=== PATIENT | male | born 2000 | race African-American/Black ===

== ENCOUNTER 2018-02-07 02:11 | Inpatient (IN) ==
[2018-02-07] MEDS ORDERED: Morphine Sulfate Inj 8 MG/ML Vial IV.PUSH ONE (02:38)
--- NOTE | 2018-02-07 02:42 | ED ---
HPI General Chief complaint: Sickle Cell Stated complaint: Poss sickle cell pain Time Seen by Provider: 02/07/18 02:40 Source: patient Mode of arrival: ambulatory Limitations: no limitations History of Present Illness HPI narrative: 17-year-old male patient with history of sickle cell disease presents to the ER today because he is having 2 days history of pains in his back area, trunk, chest, and states that he feels like it is his sickle cell crisis. He denies any vomiting, fevers, diarrhea, or other symptoms. Related Data Home Medications Medication Instructions Recorded Confirmed albuterol sulfate [Ventolin HFA] 2 puff INHALATION Q4-6H PRN 02/07/18 02/07/18 hydroxyurea (sickle cell) 100 mg PO DAILY 02/07/18 02/07/18 Allergies Allergy/AdvReac Type Severity Reaction Status Date / Time No Known Allergies Allergy Verified 02/07/18 02:15 Review of Systems ROS: all other systems reviewed are negative PMFSH History History Provided By: Patient Medical History Medical History Asthma (Acute) Sickle cell anemia with pain (Acute) Surgical History Surgical History History of cholecystectomy (Acute) Hx of appendectomy (Acute) Social History Social History Substance History: No History of Abuse Second Hand Smoke Exposure: No Smoking Status: Never smoker How Often Do You Have a Drink Containing Alcohol: Never Recent Travel in [facility] within the Last 8 Weeks: No Recent Out of Country Travel within the Last 8 Weeks: No Exam Narrative Exam Narrative: GENERAL: Well-developed young -[place]ian male patient currently in mild distress. Awake and oriented x3. SKIN: Focused skin assessment warm/dry. HEAD: Atraumatic. Normocephalic. EYES: Pupils equal and round. No scleral icterus. No injection or drainage. ENT: No nasal bleeding or discharge. Mucous membranes pink and moist. NECK: Trachea midline. No JVD. CARDIOVASCULAR: Regular rate and rhythm. No murmur appreciated. RESPIRATORY: No accessory muscle use. Clear to auscultation. Breath sounds equal bilaterally. GASTROINTESTINAL: Abdomen soft, non-tender, nondistended. Hepatic and splenic margins not palpable. MUSCULOSKELETAL: No obvious deformities. No clubbing. No cyanosis. No edema. NEUROLOGICAL: Awake and alert. No obvious cranial nerve deficits. Motor grossly within normal limits. Normal speech. PSYCHIATRIC: Appropriate mood and affect; insight and judgment normal. Course Initial Documented Vital Signs Temperature 98.7 F 02/07/18 02:15 Pulse Rate 116 H 02/07/18 02:15 Respiratory Rate 18 02/07/18 02:15 Blood Pressure 152/64 H 02/07/18 02:15 Pulse Oximetry 95 02/07/18 02:15 Last Documented Vital Signs Temperature 98.7 F 02/07/18 02:15 Pulse Rate 87 02/07/18 02:18 Respiratory Rate 15 02/07/18 02:18 Blood Pressure 114/56 L 02/07/18 02:18 Pulse Oximetry 92 L 02/07/18 02:18 Medical Decision Making MDM Narrative Medical decision making narrative: Chest x-ray did not show any signs of acute processes. His lab work shows significant anemia. 2 units of PRBCs were ordered for transfusion at this point. My plan would be to admit him for further treatment of sickle cell anemia. Case has been discussed with Dr. West for admission. Medical Screen Exam Complete: Yes Emergency Medical Condition: Yes Differential Diagnosis Differential Diagnosis: Sickle cell crisis versus symptomatic anemia versus viral syndrome versus pneumonia Lab Data Lab results reviewed: Yes I reviewed the patient's lab results. Result diagrams: 02/07/18 03:06 02/07/18 03:06 Lab Results 02/07/18 02/07/18 02/07/18 Range/Units 03:06 03:06 03:06 WBC 10.9 (4.0-11.0) th/mm3 RBC 1.31 L (4.50-5.90) mil/mm3 Hgb 5.2 L* (13.0-17.0) gm/dL Hct 13.7 L* (39.0-51.0) % MCV 104.3 H (80.0-100.0) fL MCH 39.5 H (27.0-34.0) pg MCHC 37.9 H (32.0-36.0) % RDW 27.7 H (11.6-17.2) % Plt Count 151 (150-450) th/mm3 MPV 8.5 (7.0-11.0) fL Prelim Diff (Auto) Slide review pending Neut % (Auto) 23.4 (16.0-70.0) % Lymph % (Auto) 53.3 H (9.0-44.0) % [place] % (Auto) 19.4 H (0.0-8.0) % Eos % (Auto) 3.6 (0.0-4.0) % Baso % (Auto) 0.3 (0.0-2.0) % Neut # (Auto) 2.5 (1.8-7.7) th/mm3 Lymph # (Auto) 5.8 H (1.0-4.8) th/mm3 [place] # (Auto) 2.1 H (0.0-0.9) th/mm3 Eos # (Auto) 0.4 (0.0-0.4) th/mm3 Baso # (Auto) 0.0 (0.0-0.2) th/mm3 WBC Differential Manual diff final Seg Neuts % (Manual) 18 (16-70) % Lymphocytes % (Manual) 65 H (9-44) % Monocytes % (Manual) 16 H (0-8) % Eosinophils % (Manual) 1 (0-4) % Abs Neuts (Manual) 2.0 (1.8-7.7) th/mm3 Nucleated RBCs/100 WBC 7 H (0-0) /100 WBC Differential Comment . Platelet Estimate Normal (Normal) Platelet Morphology Normal (Normal) Polychromasia 4.2 H (0.0-1.9) % Sickle Cells 1+ H (None) Target Cells 1+ H (None) Monique-Baylis Bodies Present H (None) Retic Count 8.2 H (0.4-3.0) % Absolute Retic 107.9 (20.0-150.0) mil/L Sodium 142 (136-145) meq/L Potassium 4.4 (3.5-5.1) meq/L Chloride 110 H (98-107) meq/L Carbon Dioxide 25.5 (21.0-32.0) meq/L Anion Gap 7 (5-15) meq/L BUN 10 (7-18) mg/dL Creatinine 0.72 (0.60-1.30) mg/dL Estimated GFR Greater than 89 (>89) mL/min Random Glucose 108 H (74-106) mg/dL Calcium 8.4 L (8.5-10.1) mg/dL Total Bilirubin 3.5 H (0.2-1.0) mg/dL AST 81 H (15-39) U/L ALT 20 (9-52) U/L Alkaline Phosphatase 116 (45-117) U/L C-Reactive Protein 0.64 H (0.00-0.30) mg/dL Total Protein 8.1 (6.4-8.2) g/dL Albumin 3.8 (3.4-5.0) g/dL MTS Gel Crossmatch 02/07/18 Range/Units 03:42 WBC (4.0-11.0) th/mm3 RBC (4.50-5.90) mil/mm3 Hgb (13.0-17.0) gm/dL Hct (39.0-51.0) % MCV (80.0-100.0) fL MCH (27.0-34.0) pg MCHC (32.0-36.0) % RDW (11.6-17.2) % Plt Count (150-450) th/mm3 MPV (7.0-11.0) fL Prelim Diff (Auto) Neut % (Auto) (16.0-70.0) % Lymph % (Auto) (9.0-44.0) % [place] % (Auto) (0.0-8.0) % Eos % (Auto) (0.0-4.0) % Baso % (Auto) (0.0-2.0) % Neut # (Auto) (1.8-7.7) th/mm3 Lymph # (Auto) (1.0-4.8) th/mm3 [place] # (Auto) (0.0-0.9) th/mm3 Eos # (Auto) (0.0-0.4) th/mm3 Baso # (Auto) (0.0-0.2) th/mm3 WBC Differential Seg Neuts % (Manual) (16-70) % Lymphocytes % (Manual) (9-44) % Monocytes % (Manual) (0-8) % Eosinophils % (Manual) (0-4) % Abs Neuts (Manual) (1.8-7.7) th/mm3 Nucleated RBCs/100 WBC (0-0) /100 WBC Differential Comment Platelet Estimate (Normal) Platelet Morphology (Normal) Polychromasia (0.0-1.9) % Sickle Cells (None) Target Cells (None) Monique-Baylis Bodies (None) Retic Count (0.4-3.0) % Absolute Retic (20.0-150.0) mil/L Sodium (136-145) meq/L Potassium (3.5-5.1) meq/L Chloride (98-107) meq/L Carbon Dioxide (21.0-32.0) meq/L Anion Gap (5-15) meq/L BUN (7-18) mg/dL Creatinine (0.60-1.30) mg/dL Estimated GFR (>89) mL/min Random Glucose (74-106) mg/dL Calcium (8.5-10.1) mg/dL Total Bilirubin (0.2-1.0) mg/dL AST (15-39) U/L ALT (9-52) U/L Alkaline Phosphatase (45-117) U/L C-Reactive Protein (0.00-0.30) mg/dL Total Protein (6.4-8.2) g/dL Albumin (3.4-5.0) g/dL MTS Gel Crossmatch See Detail Imaging Data Attestation: I personally reviewed and interpreted this imaging study as follows : Radiologist's impression: Chest X-Ray 02/07/18 02:40 CONCLUSION: No acute cardiopulmonary disease. Discharge Plan Discharge Disposition Patient Disposition: 30 Still Patient Discharge Condition Condition: Stable Discharge Details Anticipated Discharge Date: 02/07/18 Diagnosis: Acute sickle cell crisis, Anemia Physicians Team ED Provider: Florecita Gale Primary Care Provider: Primary Care Mary Daniel Rxs /Orders / Referrals /Forms Prescriptions: No Action albuterol sulfate [Ventolin HFA] 90 mcg/actuation Hfa Aerosol Inhaler 2 puff INHALATION Q4-6H PRN (Reason: Shortness Of Breath) RF: 0 hydroxyurea (sickle cell) 100 mg Tablet 100 mg PO DAILY RF: 0 Discharge Interventions Interventions: Vital Signs Last Done: 02/07/18 02:18 Status ED Status: Admitted Patient
[2018-02-07] MEDS ORDERED: Sod Chloride 0.9% Inj 1,000 ML IV.SIG SCH (02:45)
[2018-02-07 03:18] LABS: Baso % (Auto) 0.3 % (0.0-2.0); Eos # (Auto) 0.4 th/mm3 (0.0-0.4); Eos % (Auto) 3.6 % (0.0-4.0); Lymph # (Auto) 5.8 th/mm3 (1.0-4.8); Lymph % (Auto) 53.3 % (9.0-44.0); Mean Corpuscular Hemoglobin 39.5 pg (27.0-34.0); Mean Corpuscular Volume 104.3 fL (80.0-100.0); Mean Platelet Volume 8.5 fL (7.0-11.0); Mono # (Auto) 2.1 th/mm3 (0.0-0.9); Mono % (Auto) 19.4 % (0.0-8.0); Neut # (Auto) 2.5 th/mm3 (1.8-7.7); Neut % (Auto) 23.4 % (16.0-70.0); Platelet Count 151 th/mm3 (150-450); Red Blood Count 1.31 mil/mm3 (4.50-5.90); Red Cell Distribution Width 27.7 % (11.6-17.2); Reticulocyte Percent 8.2 % (0.4-3.0); White Blood Count 10.9 th/mm3 (4.0-11.0)
[2018-02-07 03:21] LABS: Mean Corpuscular HGB Conc 37.9 % (32.0-36.0)
[2018-02-07 03:26] LABS: Hematocrit 13.7 % (39.0-51.0); Hemoglobin 5.2 gm/dL (13.0-17.0)
--- NOTE | 2018-02-07 03:40 | XR ---
EXAM DATE: 02/07/2018 3:17 AM EST AGE/SEX: 17 years / Male INDICATIONS: Chest pain, sickle cell crisis. CLINICAL DATA: This is the patient's initial encounter. Patient reports that signs and symptoms have been present for 1 day and indicates a pain score of 5/10. MEDICAL/SURGICAL HISTORY: Sickle Cell disease. None. COMPARISON: No prior exams available for comparison. FINDINGS: A single AP view of the chest demonstrates the lungs to be symmetrically aerated without evidence of mass, infiltrate or effusion. The cardiomediastinal contours are unremarkable. Osseous structures a re intact. CONCLUSION: No acute cardiopulmonary disease. Electronically signed by: Aayush Weiner MD 02/07/2018 3:39 AM EST
[2018-02-07 03:43] LABS: Alkaline Phosphatase 116 U/L (45-117); Total Protein 8.1 g/dL (6.4-8.2)
[2018-02-07 03:44] LABS: Alanine Aminotransferase 20 U/L (9-52); Albumin 3.8 g/dL (3.4-5.0); Anion Gap 7 meq/L (5-15); Aspartate Aminotransferase 81 U/L (15-39); Blood Urea Nitrogen 10 mg/dL (7-18); Calcium 8.4 mg/dL (8.5-10.1); Carbon Dioxide 25.5 meq/L (21.0-32.0); Chloride 110 meq/L (98-107); Glomerular Filtration Rate Greater Than 89 mL/min (>89); Glucose,Random 108 mg/dL (74-106); Sodium 142 meq/L (136-145)
[2018-02-07 03:45] LABS: Potassium 4.4 meq/L (3.5-5.1)
[2018-02-07 03:53] LABS: Eosinophils 1 % (0-4); Lymphocytes 65 % (9-44); Monocytes 16 % (0-8); Tallied Nucleated RBC 7 (0-0)
[2018-02-07 03:55] LABS: Platelet Estimate Normal (Normal); Platelet Morphology Normal (Normal); Sickle Cells 1+
[2018-02-07] MEDS ORDERED: Sodium Chlor 0.9% Inj 250 ML IV.SIG SCH (04:00)
[2018-02-07 04:04] LABS: Polychromasia 4.2 % (0.0-1.9)
[2018-02-07 04:05] LABS: Target Cells 1+
[2018-02-07 04:06] LABS: Howell-Jolly Bodies Present
[2018-02-07] MEDS ORDERED: Morphine Inj 4 MG/ML Vial IV.PUSH PRN ×2 (04:10→07:58)
[2018-02-07] MEDS ORDERED: Bisacodyl 10 MG Supp RECTAL PRN (04:11)
[2018-02-07] MEDS ORDERED: Acetaminophen 325 MG Tablet PO PRN (04:11)
[2018-02-07] MEDS ORDERED: HYDROmorphone PF Inj 1 MG/ML Ampul IV.PUSH PRN (07:58)
[2018-02-07] MEDS ORDERED: Naloxone Inj 0.4 MG/ML Vial IV.PUSH PRN (07:58)
[2018-02-07] MEDS ORDERED: HYDROXYUREA 100 MG PO SCH (09:00)
[2018-02-07] MEDS: Morphine Inj 4 MG/ML Vial IV.PUSH PRN ×2 (09:04→20:43)
[2018-02-07] MEDS: Senna/Docusate Sodium 8.6/50 MG Tablet PO SCH ×3 (09:05→20:48)
--- NOTE | 2018-02-07 09:15 | P.HP ---
History of Present Illness Primary Care Physician: No Primary Care Physician Chief Complaint: diffuse pain, sickle cell crisis History of Present Illness: 17-year-old male with history of sickle cell disease and asthma, presents with a 2 day history of diffuse body pains concerned for sickle cell flare. The patient reports he recently visited back home and his mother was sick with a cough. He states he has been having nonproductive cough with chills over the past few days. Denies fevers. He then later developed diffuse constant intractable left sided posterior thorax, left hip, and diffuse low back pain which is consistent with his previous sickle cell flares. Denies any chest pain. Denies any recent fall or injury. He does report some shortness of breath and requesting his albuterol inhaler. The patient is a student at [employer]. He is from [place] and follows with test preparation tutor in [place], denies any local test preparation tutor. He reports compliance with his hydroxyurea. He states he usually has to be hospitalized every few months for his sickle cell crisis. He has no other medical complaints at this time. Inpatient Certification: I certify that the inpatient services were ordered in accordance with Medicare regulations governing the order. This includes certification that hospital inpatient services are reasonable and necessary and in the case of services not specified as inpatient-only under 42 CFR 419.22(n), that they are appropriately provided as inpatient services in accordance to with the 2-midnight benchmark under 43 CFR 412.3(e) Estimated Total Length of Stay (Days): 2 Plans for Post Hospital Care: Not yet determined Review of Systems All other systems reviewed negative except as stated in HPI [facility] - History History Provided By: Patient - Medical History Medical History: Medical History (Last Reviewed 02/07/18 @ 13:47 by Julianna Diaz) Asthma Sickle cell anemia with pain - Surgical History Surgical History: Surgical History (Last Reviewed 02/07/18 @ 13:47 by Julianna Diaz) History of cholecystectomy Hx of appendectomy - Family History Family History: Family History (Last Updated 02/07/18 @ 13:48 by Julianna Diaz) Mother Diabetes Other Sickle cell disease - Tobacco History Second Hand Smoke Exposure: No Tobacco Use In Past 30 Days: No Smoking Status: Never smoker - Alcohol History How Often Do You Have a Drink Containing Alcohol: Never - Substance Use History Substance History: No History of Abuse - Travel History Recent Travel in the [place] Within the Last 8 Weeks: No Recent Travel Out of the Country Within the Last 8 Weeks: No - Immunization History Tetanus Immunization: <5 Years Medications and Allergies Active Medications: Active Medications Al Hydroxide/Mg Hydroxide (Milk Of Magnesia Liq) 30 ml PO Q12H PRN PRN Reason: Mild Constipation Albuterol (Ventolin Hfa Inh) 2 puff INH Q4H PRN PRN Reason: SOB/wheezing Bisacodyl (Dulcolax Supp) 10 mg RECTAL DAILY PRN PRN Reason: SEVERE CONSITIPATION Hydromorphone HCl (Dilaudid Pf Inj) 1 mg IV.PUSH Q3H PRN PRN Reason: BREAKTHROUGH PAIN Sodium Chloride (Ns Inj) 250 mls @ 15 mls/hr IV.SIG ONCE NEREYDA Stop: 02/07/18 20:39 Sodium Chloride (Ns Inj) 1,000 mls @ 150 mls/hr IV.CONT .Q6H40M NEREYDA Lactulose (Lactulose Liq) 30 ml PO DAILY PRN PRN Reason: SEVERE CONSITIPATION Morphine Sulfate (Morphine Inj) 2 mg IV.PUSH Q3H PRN PRN Reason: PAIN 3-5; IF UABLE TO TAKE PO Morphine Sulfate (Morphine Inj) 4 mg IV.PUSH Q3H PRN PRN Reason: PAIN 6-10;IF UNABLE TO TAKE PO Last Admin: 02/07/18 09:04 Dose: 4 mg Morphine Sulfate (Morphine Inj) 4 mg IV.PUSH Q1H PRN PRN Reason: Pain Scale 7-10 (Intractable) Naloxone HCl (Narcan Inj) 0.4 mg IV.PUSH UNSCH PRN PRN Reason: SEE LABEL COMMENTS Ondansetron HCl (Zofran Inj) 4 mg IV.PUSH Q6H PRN PRN Reason: NAUSEA OR VOMITING Oxycodone/Acetaminophen (Percocet 5/325 Mg) 1 tab PO Q6H PRN PRN Reason: PAIN SCALE 3 TO 5 Oxycodone/Acetaminophen (Percocet 10/325 Mg) 1 tab PO Q6H PRN PRN Reason: PAIN SCALE 6 TO 10 Hydroxyurea (Sickle Cell) [Hydroxyurea ( Sickle Cell)] 100 Mg 0 each PO DAILY [facility] Senna/Docusate Sodium (Jessica-Colace) 1 tab PO BID [facility] Last Admin: 02/07/18 09:05 Dose: 1 tab Sennosides (Senokot) 17.2 mg PO Q12H PRN PRN Reason: Moderate Constipation Sodium Chloride (Ns Flush) 2 ml IV.FLUSH PRN PRN PRN Reason: FLUSH AFTER USING IV ACCESS Allergies Allergy/AdvReac Type Severity Reaction Status Date / Time No Known Allergies Allergy Verified 02/07/18 02:15 Home Medications Medication Instructions Recorded Confirmed Type albuterol sulfate [Ventolin HFA] 2 puff INHALATION Q4-6H PRN 02/07/18 02/07/18 History hydroxyurea (sickle cell) 100 mg PO DAILY 02/07/18 02/07/18 History Exam Vital signs: Vital Signs 02/07/18 02:15 02/07/18 02:18 02/07/18 04:35 Temperature 98.7 F Pulse Rate 116 H 87 85 Respiratory Rate 18 15 15 Blood Pressure 152/64 H 114/56 L 115/56 L Pulse Oximetry 95 92 L 02/07/18 08:00 Temperature 97.8 F Pulse Rate 73 Respiratory Rate 17 Blood Pressure 106/55 L Pulse Oximetry 93 L Intake & Output 02/06/18 02/07/18 02/07/18 18:59 06:59 18:59 Intake Total 1000 / 1000 Balance 1000 / 1000 Weight 63.503 kg Intake: IV 1000 / 1000 NS Inj 1,000 ML @ 1000 mls/hr 1000 / 1000 IV.SIG .Q1H [facility] Rx#:[id number] Narrative: GENERAL: Well-nourished, well-developed young AA male patient in [facility]. SKIN: Warm and dry. No rash. HEENT: Normocephalic. Atraumatic. Pupils equal and round. Mucous membranes pink and moist. NECK: Supple. Trachea midline. CARDIOVASCULAR: Regular rate and rhythm. No murmur appreciated. RESPIRATORY: No accessory muscle use. Clear to auscultation. Breath sounds equal bilaterally. GASTROINTESTINAL: Abdomen soft, non-tender, nondistended. Normoactive bowel sounds x4. MUSCULOSKELETAL: No obvious deformities. Extremities without clubbing, cyanosis , or edema. Left posterior thorax, hip, low back nontender to palpation. NEUROLOGICAL: Awake and alert. No obvious cranial nerve deficits. Motor grossly within normal limits. Moving all extremities spontaneously. Normal speech. PSYCHIATRIC: Appropriate mood and affect; insight and judgment normal. Results - Labs CBC & Chem 7: 02/07/18 03:06 02/07/18 03:06 Labs: Laboratory Results - last 24 hr 02/07/18 02/07/18 02/07/18 03:06 03:06 03:06 WBC 10.9 RBC 1.31 L Hgb 5.2 L* Hct 13.7 L* MCV 104.3 H MCH 39.5 H MCHC 37.9 H RDW 27.7 H Plt Count 151 MPV 8.5 Prelim Diff (Auto) Slide review pending Neut % (Auto) 23.4 Lymph % (Auto) 53.3 H [place] % (Auto) 19.4 H Eos % (Auto) 3.6 Baso % (Auto) 0.3 Neut # (Auto) 2.5 Lymph # (Auto) 5.8 H [place] # (Auto) 2.1 H Eos # (Auto) 0.4 Baso # (Auto) 0.0 WBC Differential Manual diff final Seg Neuts % (Manual) 18 Lymphocytes % (Manual) 65 H Monocytes % (Manual) 16 H Eosinophils % (Manual) 1 Abs Neuts (Manual) 2.0 Nucleated RBCs/100 WBC 7 H Differential Comment . Platelet Estimate Normal Platelet Morphology Normal Polychromasia 4.2 H Sickle Cells 1+ H Target Cells 1+ H Monique-Calzada Bodies Present H Retic Count 8.2 H Absolute Retic 107.9 Sodium 142 Potassium 4.4 Chloride 110 H Carbon Dioxide 25.5 Anion Gap 7 BUN 10 Creatinine 0.72 Estimated GFR Greater than 89 Random Glucose 108 H Calcium 8.4 L Total Bilirubin 3.5 H AST 81 H ALT 20 Alkaline Phosphatase 116 C-Reactive Protein 0.64 H Total Protein 8.1 Albumin 3.8 Blood Type Antibody Screen Antibody Identification Antigen Identification MTS Gel Crossmatch 02/07/18 02/07/18 03:42 08:45 WBC RBC Hgb Hct MCV MCH MCHC RDW Plt Count MPV Prelim Diff (Auto) Neut % (Auto) Lymph % (Auto) [place] % (Auto) Eos % (Auto) Baso % (Auto) Neut # (Auto) Lymph # (Auto) [place] # (Auto) Eos # (Auto) Baso # (Auto) WBC Differential Seg Neuts % (Manual) Lymphocytes % (Manual) Monocytes % (Manual) Eosinophils % (Manual) Abs Neuts (Manual) Nucleated RBCs/100 WBC Differential Comment Platelet Estimate Platelet Morphology Polychromasia Sickle Cells Target Cells Monique-[place] Bodies Retic Count Absolute Retic Sodium Potassium Chloride Carbon Dioxide Anion Gap BUN Creatinine Estimated GFR Random Glucose Calcium Total Bilirubin AST ALT Alkaline Phosphatase C-Reactive Protein Total Protein Albumin Blood Type O Positive Antibody Screen Positive H Antibody Identification Non-Specific Agglutinin Antigen Identification Fya Antigen - NEGATIVE MTS Gel Crossmatch See Detail - Imaging Impressions Chest X-Ray 02/07/18 02:40 CONCLUSION: No acute cardiopulmonary disease. Caprini VTE Risk Assessment Caprini VTE Risk Assessment: No/Low Risk (score <= 1) Caprini Risk Assessment Model: Point Value = 1 Point Value = 2 Point Value = 3 Point Value = 5 Age 41-60 Minor surgery BMI > 25 kg/m2 Swollen legs Varicose veins or History of unexplained or recurrent spontaneous Oral contraceptives or hormone replacement Sepsis (< 1 month) Serious lung disease, including pneumonia (< 1 month) Abnormal pulmonary function Acute myocardial infarction Congestive heart failure (< 1 month) History of inflammatory bowel disease Medical patient at bed rest Age 61-74 Arthroscopic surgery Major open surgery (> 45 min) Laparoscopic surgery (> 45 min) Malignancy Confined to bed (> 72 hours) Immobilizing plaster cast Central venous access Age >= 75 History of VTE Family history of VTE Factor V Leiden Prothrombin 53002C Lupus anticoagulant Anticardiolipin antibodies Elevated serum homocysteine Heparin-induced thrombocytopenia Other congenital or acquired thrombophilia Stroke (< 1 month) Elective arthroplasty Hip, pelvis, or leg fracture Acute spinal cord injury (< 1 month) Prophylaxis Regimen: Total Risk Factor Score Risk Level Prophylaxis Regimen 0-1 Low Early ambulation 2 Moderate Order ONE of the following: *Sequential Compression Device (SCD) *Heparin 5000 units SQ BID 3-4 Higher Order ONE of the following medications: *Heparin 5000 units SQ TID *Enoxaparin/Lovenox 40 mg SQ daily (WT < 150 kg, CrCl > 30 mL/min) *Enoxaparin/Lovenox 30 mg SQ daily (WT < 150 kg, CrCl > 10-29 mL/min) *Enoxaparin/Lovenox 30 mg SQ BID (WT < 150 kg, CrCl > 30 mL/min) AND/OR *Sequential Compression Device (SCD) 5 or more Highest Order ONE of the following medications: *Heparin 5000 units SQ TID (Preferred with Epidurals) *Enoxaparin/Lovenox 40 mg SQ daily (WT < 150 kg, CrCl > 30 mL/min) *Enoxaparin/Lovenox 30 mg SQ daily (WT < 150 kg, CrCl > 10-29 mL/min) *Enoxaparin/Lovenox 30 mg SQ BID (WT < 150 kg, CrCl > 30 mL/min) AND *Sequential Compression Device (SCD) Assessment and Plan - Plan 17-year-old male with history of sickle cell disease and asthma, presents with a 2 day history of diffuse body pains concerned for sickle cell flare. Sickle Cell Crisis and Anemia: Hgb 5.2 upon arrival -2u pRBC transfusion ordered by ER -s/p IVF boluses in ED, continue IVF hydration with 150cc/hr -continue pain control with percocet prn, IV morphine prn, IV dilaudid prn -O2 prn -consult hematology, appreciate assistance Asthma: chronic, does not appear to be in exacerbation -continue patient's albuterol inhaler prn DVT Prophylaxis: teds/SCDs; avoid chemical prophylaxis with anemia Discharge Planning: Discharge pending further clinical improvement, and hematology consult and clearance.
[2018-02-07] MEDS: Sod Chloride 0.9% Inj 1,000 ML IV.CONT SCH ×2 (11:00→18:32)
[2018-02-07] MEDS: oxyCODONE/Acetaminophen 10/325 Tablet PO PRN (16:19)
[2018-02-07 18:22] VITALS: RESP 18
--- NOTE | 2018-02-07 20:57 | MB ---
cc: Antoine Gardner MD DATE: 02/07/2018 REQUESTING PHYSICIAN: Hospitalist. REASON FOR CONSULTATION: Evaluation and management of sickle cell crisis. HISTORY OF PRESENT ILLNESS: Mr. 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 He is known to have a diagnosis of sickle cell disease with the last episode of sickle cell pain crisis about 4-6 months ago, treated in [place] where he lives. His test desk trouble locator lives in [place] and he follows up with him, and he is on hydroxyurea. He is now admitted with the above problems. He does not have any fevers or chills. He also does not have any shortness of breath, cough or hemoptysis. Does have chronic shortness of breath from asthma on and off, but no recent exacerbation. He did have respiratory symptoms as his mother was also sick at home according to him and he had a sore throat, sniffles, and dry cough with no hemoptysis. No chest pains or palpitations. REVIEW OF SYSTEMS: Negative for headaches, recent symptoms. No neck pain or photophobia. Pulmonary symptoms as mentioned, in no acute shortness of breath or hemoptysis. Abdomen is without pain or distention, nausea, vomiting, blood in the stool or black stools. No frequency, urgency or hematuria. PAST MEDICAL HISTORY: As noted above. MEDICATIONS: He has been on: 1. Hydroxyurea 3 tablets daily according to him. 2. Currently, he is on Oxycodone. 3. Zofran. 4. Narcan. 5. Morphine. 6. As well as Dilaudid as needed. 7. He is on lactulose. 8. Dulcolax. PHYSICAL EXAMINATION: GENERAL: On examination, young male in no apparent distress. Pallor present. No icterus. No palpable adenopathy in the neck or axilla. HEENT: Without oropharyngeal lesions, no gum bleeding or hypertrophy. NEUROLOGIC: Alert and oriented x4. No spinal tenderness. NECK: No JVD. CARDIOVASCULAR: S1, S2. Regular rate and rhythm. No murmurs or gallops. LUNGS: Clear, without crackles or wheeze. ABDOMEN: Soft, without palpable hepatosplenomegaly. EXTREMITIES: No tenderness, or guarding. No edema or evidence of DVTs. LABORATORY DATA: White count 10.9, hemoglobin 5.2, hematocrit 13.7, MCV 104.3, platelets 151 and chemistry significant for total bilirubin 3.5, AST of 81, ALT 20, and creatinine 0.7. C-reactive protein 0.64. IMPRESSION: Sickle cell disease with acute painful crisis. No evidence of hemolytic crisis. No evidence of chest syndrome. PLAN: Agree with current management including hydration and pain medication. In addition, would recommend folic acid supplementation. We will also order haptoglobin levels, and he is status post 2 units of blood transfusion. Would recommend keeping the hemoglobin above 8 grams and will order a STAT repeat CBC and see me in followup with another . If you have any further questions, please do not hesitate to contact me. MD JU Portillo/em , 07:30 PM , 07:39 PM
[2018-02-07] MEDS: Folic Acid 1 MG Tablet PO SCH (21:52)
[2018-02-08] MEDS: Morphine Sulfate Inj 2 MG/ML Vial IV.PUSH PRN ×2 (01:07→08:10)
[2018-02-08] MEDS: Sod Chloride 0.9% Inj 1,000 ML IV.CONT SCH ×3 (01:14→16:53)
[2018-02-08 03:01] LABS: Baso % (Auto) 0.4 % (0.0-2.0); Eos # (Auto) 0.7 th/mm3 (0.0-0.4); Eos % (Auto) 7.1 % (0.0-4.0); Hematocrit 21.9 % (39.0-51.0); Lymph # (Auto) 4.3 th/mm3 (1.0-4.8); Lymph % (Auto) 44.5 % (9.0-44.0); Mean Corpuscular Hemoglobin 36.2 pg (27.0-34.0); Mean Platelet Volume 7.9 fL (7.0-11.0); Mono # (Auto) 1.4 th/mm3 (0.0-0.9); Mono % (Auto) 14.7 % (0.0-8.0); Neut # (Auto) 3.2 th/mm3 (1.8-7.7); Neut % (Auto) 33.3 % (16.0-70.0); Platelet Count 296 th/mm3 (150-450); Red Blood Count 2.21 mil/mm3 (4.50-5.90); Red Cell Distribution Width 25.3 % (11.6-17.2); White Blood Count 9.7 th/mm3 (4.0-11.0)
[2018-02-08 03:05] LABS: Mean Corpuscular HGB Conc 36.5 % (32.0-36.0)
[2018-02-08 05:16] LABS: Platelet Estimate Normal (Normal); Platelet Morphology Normal (Normal)
[2018-02-08 05:17] LABS: Sickle Cells 3+; Target Cells 1+
[2018-02-08] MEDS: Folic Acid 1 MG Tablet PO SCH (08:12)
[2018-02-08] MEDS: Senna/Docusate Sodium 8.6/50 MG Tablet PO SCH (08:15)
--- NOTE | 2018-02-08 09:22 | P.PN ---
Subjective Interval history: Follow-up for sickle cell crisis/anemia. Patient reports feeling much better today. His hemoglobin is 8.0. He states that is actually very good for him as he usually is around 7.0. He states his pain is fairly well controlled. Denies any chest pain or shortness of breath today. He would like to be discharged. He plans to go to class this afternoon. Physical Exam Vital signs: Vital Signs 02/07/18 12:00 02/07/18 14:53 02/07/18 15:21 Temperature 96.5 F L 97.5 F L 98.1 F Pulse Rate 82 72 76 Respiratory Rate 17 17 16 Blood Pressure 103/52 L 115/60 114/54 L Pulse Oximetry 92 L 97 94 L 02/07/18 16:00 02/07/18 18:08 02/07/18 18:15 Temperature 97.5 F L 97.5 F L Pulse Rate 71 60 Respiratory Rate 17 18 Blood Pressure 103/55 L 119/68 Pulse Oximetry 94 L 94 L 94 L 02/07/18 20:42 02/07/18 21:22 02/07/18 21:44 Temperature 97.5 F L 97.5 F L 98.5 F Pulse Rate 68 68 75 Respiratory Rate 18 18 18 Blood Pressure 115/54 L 115/54 L 111/53 L Pulse Oximetry 99 94 L 94 L 02/08/18 05:07 02/08/18 08:00 Temperature 98.1 F 98.6 F Pulse Rate 65 64 Respiratory Rate 18 18 Blood Pressure 109/55 L 114/60 Pulse Oximetry 96 93 L Intake & Output 02/07/18 02/08/18 02/08/18 18:59 06:59 18:59 Intake Total 1300 / 1300 880 / 880 1000 / 1000 Output Total 1250 / 1250 Balance 1300 / 1300 -370 / -370 1000 / 1000 Weight 63.503 kg 63.5 kg Intake: IV 900 / 900 1000 / 1000 NS Inj 1,000 ML @ 150 mls/hr IV 900 / 900 1000 / 1000 .CONT .Q6H40M [facility] Rx#:[id number] Oral 480 / 480 Intake (Blood Product) Amt 400 / 400 400 / 400 Rbc As-3 Leukoreduced Unit 400 / 400 [id number] Rbc As-3 Leukoreduced Unit 400 / 400 [id number] Output: Urine 1250 / 1250 Other: # Voids 3 Date of Last Bowel Movement 02/06/18 02/06/18 # Bowel Movements 0 Weight On Admission 63.503 kg Narrative: GENERAL: Well-nourished, well-developed pleasant young AA male patient in [facility]. SKIN: Warm and dry. No rash. HEENT: Normocephalic. Atraumatic. Pupils equal and round. Mucous membranes pink and moist. CARDIOVASCULAR: Regular rate and rhythm. No murmur appreciated. RESPIRATORY: No accessory muscle use. Clear to auscultation. Breath sounds equal bilaterally. GASTROINTESTINAL: Abdomen soft, non-tender, nondistended. Normoactive bowel sounds x4. MUSCULOSKELETAL: No obvious deformities. Extremities without clubbing, cyanosis , or edema. NEUROLOGICAL: Awake and alert. No obvious cranial nerve deficits. Moving all extremities spontaneously. Normal speech. PSYCHIATRIC: Appropriate mood and affect; insight and judgment normal. Results - Labs CBC & Chem 7: 02/08/18 02:46 02/07/18 03:06 Laboratory Results - last 24 hr 02/07/18 02/07/18 02/08/18 03:06 03:42 02:46 WBC 9.7 RBC 2.21 L Hgb 8.0 L D Hct 21.9 L MCV 99.0 D MCH 36.2 H MCHC 36.5 H RDW 25.3 H Plt Count 296 D MPV 7.9 Prelim Diff (Auto) Slide review pending Neut % (Auto) 33.3 Lymph % (Auto) 44.5 H [place] % (Auto) 14.7 H Eos % (Auto) 7.1 H Baso % (Auto) 0.4 Neut # (Auto) 3.2 Lymph # (Auto) 4.3 [place] # (Auto) 1.4 H Eos # (Auto) 0.7 H Baso # (Auto) 0.0 WBC Differential . Diff Scan Auto diff confirmed Differential Comment . Platelet Estimate Normal Platelet Morphology Normal Basophilic Stippling Faint H Sickle Cells 3+ H Target Cells 1+ H Haptoglobin Iron 143 TIBC 242 L % Saturation 59.0 H Ferritin 281 Blood Type O Positive Antibody Screen Positive H Antigen Identification Fya Antigen - NEGATIVE MTS Gel Crossmatch See Detail Bld Prod Order Comment 02/08/18 02:46 WBC RBC Hgb Hct MCV MCH MCHC RDW Plt Count MPV Prelim Diff (Auto) Neut % (Auto) Lymph % (Auto) [place] % (Auto) Eos % (Auto) Baso % (Auto) Neut # (Auto) Lymph # (Auto) [place] # (Auto) Eos # (Auto) Baso # (Auto) WBC Differential Diff Scan Differential Comment Platelet Estimate Platelet Morphology Basophilic Stippling Sickle Cells Target Cells Haptoglobin Less than 10 L Iron TIBC % Saturation Ferritin Blood Type Antibody Screen Antigen Identification MTS Gel Crossmatch Bld Prod Order Comment - Imaging Chest X-Ray 02/07/18 02:40 CONCLUSION: No acute cardiopulmonary disease. Assessment and Plan - Plan 17-year-old male with history of sickle cell disease and asthma, presents with a 2 day history of diffuse body pains concerned for sickle cell flare. Sickle Cell Crisis and Anemia: Hgb 5.2 upon arrival -s/p 2u pRBC transfusion on 02/07 -s/p IVF boluses in ED, continued IVF hydration with 150cc/hr -continue pain control with percocet prn, IV morphine prn, IV dilaudid prn -O2 prn -consult hematology, appreciate assistance, recommends keeping Hgb above 8 and added folic acid daily -repeat Hgb 8.0 today, patient feels well and wants to go home, discussed with RN, await hematology clearance Asthma: chronic, does not appear to be in exacerbation -continue patient's albuterol inhaler prn -stable DVT Prophylaxis: teds/SCDs; avoid chemical prophylaxis with anemia Discharge Planning: Discharge pending hematology clearance. Discharge patient to home Condition on discharge: Stable Regular Diet as tolerated Ad Samantha activity Rx written: folic acid 1mg daily Follow-up with primary care physician and hematology
[2018-02-08 12:17] VITALS: BP 121/61; PULSE 65; TEMP 98.5; O2SAT 99
[2018-02-08] MEDS: oxyCODONE/Acetaminophen 10/325 Tablet PO PRN (12:54)
--- NOTE | 2018-02-08 20:50 | P.PNONC ---
Subjective Interval history: Late entry: Patient seen earlier this afternoon. Patient sitting at the bedside, dressed and ready to go home. He states he is feeling much better. States his pain is controllable. He denies any shortness of breath or chest pain. Objective Vital Signs/Intake & Output: Vital Signs 02/07/18 21:22 02/07/18 21:44 02/08/18 05:07 Temperature 97.5 F L 98.5 F 98.1 F Pulse Rate 68 75 65 Respiratory Rate 18 18 18 Blood Pressure 115/54 L 111/53 L 109/55 L Pulse Oximetry 94 L 94 L 96 02/08/18 08:00 02/08/18 12:00 Temperature 98.6 F 98.5 F Pulse Rate 64 65 Respiratory Rate 18 18 Blood Pressure 114/60 121/61 Pulse Oximetry 93 L 99 Intake & Output 02/08/18 02/08/18 02/09/18 06:59 18:59 06:59 Intake Total 880 / 880 1999 Output Total 1250 / 1250 Balance -370 / -370 1999 Weight 63.5 kg Intake: IV 1999 NS Inj 1,000 ML @ 150 mls/hr IV 1999 .CONT .Q6H40M [facility] Rx#:[id number] Oral 480 / 480 Intake (Blood Product) Amt 400 / 400 Rbc As-3 Leukoreduced Unit 400 / 400 [id number] Output: Urine 1250 / 1250 Other: Date of Last Bowel Movement 02/06/18 # Bowel Movements 0 Result Diagrams: 02/08/18 02:46 02/07/18 03:06 Laboratory Results: Laboratory Results - last 24 hr 02/07/18 02/08/18 02/08/18 03:42 02:46 02:46 WBC 9.7 RBC 2.21 L Hgb 8.0 L D Hct 21.9 L MCV 99.0 D MCH 36.2 H MCHC 36.5 H RDW 25.3 H Plt Count 296 D MPV 7.9 Prelim Diff (Auto) Slide review pending Neut % (Auto) 33.3 Lymph % (Auto) 44.5 H [place] % (Auto) 14.7 H Eos % (Auto) 7.1 H Baso % (Auto) 0.4 Neut # (Auto) 3.2 Lymph # (Auto) 4.3 [place] # (Auto) 1.4 H Eos # (Auto) 0.7 H Baso # (Auto) 0.0 WBC Differential . Diff Scan Auto diff confirmed Differential Comment . Platelet Estimate Normal Platelet Morphology Normal Basophilic Stippling Faint H Sickle Cells 3+ H Target Cells 1+ H Haptoglobin Less than 10 L Blood Type O Positive Antibody Screen Positive H Antigen Identification Fya Antigen - NEGATIVE MTS Gel Crossmatch See Detail Bld Prod Order Comment Objective Remarks: GENERAL: Well-nourished, well-developed young male patient, in no acute distress SKIN: Warm and dry. HEAD: Normocephalic. EYES: No scleral icterus. No injection or drainage. NECK: Supple, trachea midline. CARDIOVASCULAR: Regular rate and rhythm without murmurs. RESPIRATORY: Breath sounds equal bilaterally. No accessory muscle use. GASTROINTESTINAL: Abdomen soft, non-tender, nondistended. EXTREMITIES: No cyanosis, or edema. MUSCULOSKELETAL: Adequate muscle tone. NEUROLOGICAL: No obvious focal deficit. Awake, alert, and oriented x3. PSYCHIATRIC: Appropriate mood and affect; insight and judgment normal. Assessment/Plan - Plan 17-year-old gentleman admitted for sickle cell pain crisis. Plan: 1. Sickle cell pain crisis, subjectively reports pain is manageable. 2. Sickle cell anemia, hemoglobin 8.0 status post transfusion of 2 units of packed red blood cells. 3. Patient cleared for discharge from a hematology standpoint.
== END 2018-02-08 16:39 | disposition home or self-care (01) ==
LOC: NEPE 02:11 → NEDA 04:11 → N06 06:30
PROVIDERS: ADMIT Internal Medicine; ATTEND Internal Medicine

== ENCOUNTER 2018-05-26 03:45 | Inpatient (IN) ==
[2018-05-26] MEDS ORDERED: Morphine Sulfate Inj 8 MG/ML Vial IV.PUSH ONE (03:58)
[2018-05-26] MEDS ORDERED: Sod Chloride 0.9% Inj 1,000 ML IV.SIG SCH (04:00)
--- NOTE | 2018-05-26 04:27 | XR ---
EXAM DATE: 05/26/2018 4:24 AM EST AGE/SEX: 17 years / Male INDICATIONS: Shortness of breath. CLINICAL DATA: This is the patient's initial encounter. Patient reports that signs and symptoms have been present for 1 day and indicates a pain score of 0/10. MEDICAL/SURGICAL HISTORY: Sickle Cell disease. None. [place] [facility] [place]. . FINDINGS: A single AP view of the chest demonstrates the lungs to be symmetrically aerated without evidence of mass, infiltrate or effusion. The cardiomediastinal contours are unremarkable. Osseous structures a re intact. CONCLUSION: No active disease. Electronically signed by: Juan Manuel Dickinson MD Board Certified Radiologist 05/26/2018 4:26 AM EST
[2018-05-26 05:20] LABS: Alkaline Phosphatase 95 U/L (45-117); Creatine Kinase 179 U/L (39-308); Total Protein 8.4 g/dL (6.4-8.2)
--- NOTE | 2018-05-26 05:20 | ED ---
HPI General Chief complaint: Sickle Cell Stated complaint: Diff breathing Time Seen by Provider: 05/26/18 03:54 Source: patient Mode of arrival: EMS Limitations: no limitations History of Present Illness HPI narrative: 17-year-old male came to the emergency room with history of shortness of breath and lower back pain. Patient has history of asthma as well as sickle cell disease. He says that his lower back pain has been going on for past 24-36 hours. However the shortness of breath started last night. He is taking his inhaler but it did not work. EMS was called. He was given 2 albuterol nebulizers. Upon arrival his room air oxygen saturation was 90%. Patient does have a enzyme chemist from [place]. He says that his last blood transfusion was 3-4 months back. He has been coughing. Related Data Home Medications Medication Instructions Recorded Confirmed albuterol sulfate [Ventolin HFA] 2 puff INHALATION Q4-6H PRN 02/07/18 05/26/18 hydroxyurea (sickle cell) 500 mg PO DAILY 02/07/18 05/26/18 Previous Rx's Medication Instructions Recorded folic acid 1 mg PO DAILY 30 Days #30 tab 02/08/18 Allergies Allergy/AdvReac Type Severity Reaction Status Date / Time No Known Allergies Allergy Verified 05/26/18 04:01 Review of Systems ROS: all other systems reviewed are negative [facility] Medical History Medical History Asthma (Chronic) Sickle cell anemia with pain (Chronic) Surgical History Surgical History History of cholecystectomy (Chronic) Hx of appendectomy (Chronic) Family History Family History Mother Diabetes Other Sickle cell disease Social History Social History Substance History: No History of Abuse Second Hand Smoke Exposure: No Smoking Status: Never smoker How Often Do You Have a Drink Containing Alcohol: Never Recent Travel in [facility] within the Last 8 Weeks: No Recent Out of Country Travel within the Last 8 Weeks: No Immunization History Tetanus Immunization: >5 Years Exam Narrative Exam Narrative: GENERAL: Awake, alert, moderate to SKIN: Focused skin assessment warm/dry. HEAD: Atraumatic. Normocephalic. EYES: Pupils equal and round. No scleral icterus. No injection or drainage. Conjunctiva pallor ENT: No nasal bleeding or discharge. Mucous membranes pink and moist. NECK: Trachea midline. No JVD. CARDIOVASCULAR: Regular rate and rhythm. No murmur appreciated. RESPIRATORY: No accessory muscle use. Decreased air entry bilaterally with end expiratory wheeze GASTROINTESTINAL: Abdomen soft, non-tender, nondistended. Hepatic and splenic margins not palpable. MUSCULOSKELETAL: No obvious deformities. No clubbing. No cyanosis. No edema. NEUROLOGICAL: Awake and alert. No obvious cranial nerve deficits. Motor grossly within normal limits. Normal speech. PSYCHIATRIC: Appropriate mood and affect; insight and judgment normal. Course Initial Documented Vital Signs Pulse Rate 102 H 05/26/18 03:56 Respiratory Rate 20 05/26/18 03:56 Blood Pressure 143/66 H 05/26/18 03:56 Pulse Oximetry 90 L 05/26/18 03:56 Last Documented Vital Signs Temperature 96.9 F L 05/27/18 11:45 Pulse Rate 81 05/27/18 11:45 Respiratory Rate 20 05/27/18 11:45 Blood Pressure 117/68 05/27/18 11:45 Pulse Oximetry 96 05/27/18 11:45 Critical Care Time Critical Care Time: Yes Total Critical Care Time: 2 Attestation: Aggregate critical care time was 30 minutes. Time to perform other separately billable procedures was not included in the critical care time. My time did not include minutes spent treating any other patients simultaneously or on activities that did not directly contribute to the patient's treatment. The services I provided to this patient were to treat and/or prevent clinically significant deterioration that could result in: Symptomatic anemia, blood transfusion I provided critical care services requiring my management, as noted below: Chart data review, documentation time, medication orders and management, vital sign assessments/reviewing monitor data, ordering and reviewing lab tests, ordering and interpreting/reviewing x-rays and diagnostic studies, care of the patient and discussion of the patient with the admitting physicians. Medical Decision Making MDM Narrative Medical decision making narrative: 5:19 AM patient has been given pain medication. 2 doses of DuoNeb has been ordered. Patient had already received IV Solu-Medrol. Awaiting for blood test results. 5:59 AM the CBC shows critical anemia. I have ordered for 2 units of PRBC transfusion. Patient has been admitted to the hospitalist. Medical Screen Exam Complete: Yes Emergency Medical Condition: Yes Lab Data Result diagrams: 05/27/18 07:54 05/27/18 07:54 Lab Results 05/26/18 05/26/18 05/26/18 Range/Units 04:30 04:30 04:30 WBC 16.4 H (4.0-11.0) th/mm3 RBC 1.68 L (4.50-5.90) mil/mm3 Hgb 5.9 L* (13.0-17.0) gm/dL Hct 16.1 L* (39.0-51.0) % MCV 95.6 (80.0-100.0) fL MCH 34.9 H (27.0-34.0) pg MCHC 36.5 H (32.0-36.0) % RDW 26.4 H (11.6-17.2) % Plt Count 321 (150-450) th/mm3 MPV 7.8 (7.0-11.0) fL Prelim Diff (Auto) Slide review pending Neut % (Auto) 42.1 (16.0-70.0) % Lymph % (Auto) 33.6 (9.0-44.0) % [place] % (Auto) 17.2 H (0.0-8.0) % Eos % (Auto) 6.1 H (0.0-4.0) % Baso % (Auto) 1.0 (0.0-2.0) % Neut # (Auto) 6.9 (1.8-7.7) th/mm3 Lymph # (Auto) 5.5 H (1.0-4.8) th/mm3 [place] # (Auto) 2.8 H (0.0-0.9) th/mm3 Eos # (Auto) 1.0 H (0.0-0.4) th/mm3 Baso # (Auto) 0.2 (0.0-0.2) th/mm3 WBC Differential Manual diff final Seg Neuts % (Manual) 34 (16-70) % Band Neuts % (Manual) 3 (0-6) % Lymphocytes % (Manual) 47 H (9-44) % Monocytes % (Manual) 11 H (0-8) % Eosinophils % (Manual) 5 H (0-4) % Abs Neuts (Manual) 6.1 (1.8-7.7) th/mm3 Nucleated RBCs/100 WBC 19 H (0-0) /100 WBC Differential Comment . Platelet Estimate Normal (Normal) Platelet Morphology Enlarged H (Normal) Dimorphic RBCs (None) Polychromasia 6.5 H (0.0-1.9) % Basophilic Stippling (None) Spherocytes (None) Pappenheimer Bodies Present H (None) Sickle Cells 3+ H (None) Target Cells 1+ H (None) Monique-Hartline Bodies Present H (None) Retic Count 14.4 H (0.4-3.0) % Absolute Retic 243.1 H (20.0-150.0) mil/L Hematology Comments Sodium 139 (136-145) meq/L Potassium 3.6 (3.5-5.1) meq/L Chloride 108 H (98-107) meq/L Carbon Dioxide 22.8 (21.0-32.0) meq/L Anion Gap 8 (5-15) meq/L BUN 7 (7-18) mg/dL Creatinine 0.75 (0.60-1.30) mg/dL Estimated GFR Greater than 89 (>89) mL/min Random Glucose 113 H (74-106) mg/dL Lactic Acid 1.3 (0.4-2.0) mmol/L Calcium 8.1 L (8.5-10.1) mg/dL Magnesium 1.8 (1.5-2.5) mg/dL Total Bilirubin 5.5 H (0.2-1.0) mg/dL AST 78 H (15-39) U/L ALT 14 (9-52) U/L Alkaline Phosphatase 95 (45-117) U/L Total Creatine Kinase 179 (39-308) U/L Total Protein 8.4 H (6.4-8.2) g/dL Albumin 3.7 (3.4-5.0) g/dL Urine Color (Yellw/Straw) Urine Clarity (Clear) Urine pH (5.0-8.5) Ur Specific [place] (1.002-1.035) Urine Protein (Neg-Trace) mg/dL Urine Glucose (UA) (Negative) mg/dL Urine Ketones (Negative) mg/dL Urine Occult Blood (Negative) Urine Nitrate (Negative) Urine Bilirubin (Negative) Urine Urobilinogen (Less than 2) mg/dL Ur Leukocyte Esterase (Negative) Urine WBC (0-5) /hpf Urine Mucus (Occasional) /lpf Micro UA Comment Ur Microscopic Review Urine Culture Comments Blood Type Antibody Screen Prewarmed Antibody Srcn Antibody Identification Antigen Identification MTS Gel Crossmatch Crossmatch Prewarmed Bld Prod Order Comment 05/26/18 05/26/18 05/26/18 Range/Units 04:30 04:30 04:30 WBC (4.0-11.0) th/mm3 RBC (4.50-5.90) mil/mm3 Hgb (13.0-17.0) gm/dL Hct (39.0-51.0) % MCV (80.0-100.0) fL MCH (27.0-34.0) pg MCHC (32.0-36.0) % RDW (11.6-17.2) % Plt Count (150-450) th/mm3 MPV (7.0-11.0) fL Prelim Diff (Auto) Neut % (Auto) (16.0-70.0) % Lymph % (Auto) (9.0-44.0) % Raw[place] % (Auto) (0.0-8.0) % Eos % (Auto) (0.0-4.0) % Baso % (Auto) (0.0-2.0) % Neut # (Auto) (1.8-7.7) th/mm3 Lymph # (Auto) (1.0-4.8) th/mm3 [place] # (Auto) (0.0-0.9) th/mm3 Eos # (Auto) (0.0-0.4) th/mm3 Baso # (Auto) (0.0-0.2) th/mm3 WBC Differential Seg Neuts % (Manual) (16-70) % Band Neuts % (Manual) (0-6) % Lymphocytes % (Manual) (9-44) % Monocytes % (Manual) (0-8) % Eosinophils % (Manual) (0-4) % Abs Neuts (Manual) (1.8-7.7) th/mm3 Nucleated RBCs/100 WBC (0-0) /100 WBC Differential Comment Platelet Estimate (Normal) Platelet Morphology (Normal) Dimorphic RBCs (None) Polychromasia (0.0-1.9) % Basophilic Stippling (None) Spherocytes (None) Pappenheimer Bodies (None) Sickle Cells (None) Target Cells (None) Monique-Hartline Bodies (None) Retic Count Cancelled (0.4-3.0) % Absolute Retic Cancelled (20.0-150.0) mil/L Hematology Comments Sodium (136-145) meq/L Potassium (3.5-5.1) meq/L Chloride (98-107) meq/L Carbon Dioxide (21.0-32.0) meq/L Anion Gap (5-15) meq/L BUN (7-18) mg/dL Creatinine (0.60-1.30) mg/dL Estimated GFR (>89) mL/min Random Glucose (74-106) mg/dL Lactic Acid (0.4-2.0) mmol/L Calcium (8.5-10.1) mg/dL Magnesium (1.5-2.5) mg/dL Total Bilirubin (0.2-1.0) mg/dL AST (15-39) U/L ALT (9-52) U/L Alkaline Phosphatase (45-117) U/L Total Creatine Kinase (39-308) U/L Total Protein (6.4-8.2) g/dL Albumin (3.4-5.0) g/dL Urine Color (Yellw/Straw) Urine Clarity (Clear) Urine pH (5.0-8.5) Ur Specific [place] (1.002-1.035) Urine Protein (Neg-Trace) mg/dL Urine Glucose (UA) (Negative) mg/dL Urine Ketones (Negative) mg/dL Urine Occult Blood (Negative) Urine Nitrate (Negative) Urine Bilirubin (Negative) Urine Urobilinogen (Less than 2) mg/dL Ur Leukocyte Esterase (Negative) Urine WBC (0-5) /hpf Urine Mucus (Occasional) /lpf Micro UA Comment Ur Microscopic Review Urine Culture Comments Blood Type O Positive Antibody Screen Positive H Prewarmed Antibody Srcn Positive H Antibody Identification Antigen Identification C Antigen - NEGATIVE MTS Gel Crossmatch See Detail Crossmatch Prewarmed See Detail Bld Prod Order Comment 05/26/18 05/26/18 05/26/18 Range/Units 10:54 12:45 13:04 WBC (4.0-11.0) th/mm3 RBC (4.50-5.90) mil/mm3 Hgb Cancelled (13.0-17.0) gm/dL Hct Cancelled (39.0-51.0) % MCV (80.0-100.0) fL MCH (27.0-34.0) pg MCHC (32.0-36.0) % RDW (11.6-17.2) % Plt Count (150-450) th/mm3 MPV (7.0-11.0) fL Prelim Diff (Auto) Neut % (Auto) (16.0-70.0) % Lymph % (Auto) (9.0-44.0) % [place] % (Auto) (0.0-8.0) % Eos % (Auto) (0.0-4.0) % Baso % (Auto) (0.0-2.0) % Neut # (Auto) (1.8-7.7) th/mm3 Lymph # (Auto) (1.0-4.8) th/mm3 [place] # (Auto) (0.0-0.9) th/mm3 Eos # (Auto) (0.0-0.4) th/mm3 Baso # (Auto) (0.0-0.2) th/mm3 WBC Differential Seg Neuts % (Manual) (16-70) % Band Neuts % (Manual) (0-6) % Lymphocytes % (Manual) (9-44) % Monocytes % (Manual) (0-8) % Eosinophils % (Manual) (0-4) % Abs Neuts (Manual) (1.8-7.7) th/mm3 Nucleated RBCs/100 WBC (0-0) /100 WBC Differential Comment Platelet Estimate (Normal) Platelet Morphology (Normal) Dimorphic RBCs (None) Polychromasia (0.0-1.9) % Basophilic Stippling (None) Spherocytes (None) Pappenheimer Bodies (None) Sickle Cells (None) Target Cells (None) Monique-Hartline Bodies (None) Retic Count (0.4-3.0) % Absolute Retic (20.0-150.0) mil/L Hematology Comments Cancelled Sodium (136-145) meq/L Potassium (3.5-5.1) meq/L Chloride (98-107) meq/L Carbon Dioxide (21.0-32.0) meq/L Anion Gap (5-15) meq/L BUN (7-18) mg/dL Creatinine (0.60-1.30) mg/dL Estimated GFR (>89) mL/min Random Glucose (74-106) mg/dL Lactic Acid (0.4-2.0) mmol/L Calcium (8.5-10.1) mg/dL Magnesium (1.5-2.5) mg/dL Total Bilirubin (0.2-1.0) mg/dL AST (15-39) U/L ALT (9-52) U/L Alkaline Phosphatase (45-117) U/L Total Creatine Kinase (39-308) U/L Total Protein (6.4-8.2) g/dL Albumin (3.4-5.0) g/dL Urine Color Yellow (Yellw/Straw) Urine Clarity Clear (Clear) Urine pH 6.0 (5.0-8.5) Ur Specific [place] 1.008 (1.002-1.035) Urine Protein 30 H (Neg-Trace) mg/dL Urine Glucose (UA) Negative (Negative) mg/dL Urine Ketones Negative (Negative) mg/dL Urine Occult Blood Moderate H (Negative) Urine Nitrate Negative (Negative) Urine Bilirubin Negative (Negative) Urine Urobilinogen 0.2 (Less than 2) mg/dL Ur Leukocyte Esterase Negative (Negative) Urine WBC Less than 1 (0-5) /hpf Urine Mucus Few H (Occasional) /lpf Micro UA Comment Culture not ind Ur Microscopic Review Not Reportable Urine Culture Comments Culture not ind Blood Type Antibody Screen Prewarmed Antibody Srcn Antibody Identification Non-Specific Cold Agglutinin Antigen Identification MTS Gel Crossmatch Crossmatch Prewarmed Bld Prod Order Comment 05/27/18 05/27/18 Range/Units 07:54 07:54 WBC 5.5 (4.0-11.0) th/mm3 RBC 2.32 L (4.50-5.90) mil/mm3 Hgb 8.0 L D (13.0-17.0) gm/dL Hct 21.3 L (39.0-51.0) % MCV 92.1 D (80.0-100.0) fL MCH 34.6 H (27.0-34.0) pg MCHC 37.6 H (32.0-36.0) % RDW 21.5 H D (11.6-17.2) % Plt Count 341 (150-450) th/mm3 MPV 8.1 (7.0-11.0) fL Prelim Diff (Auto) Slide review pending Neut % (Auto) 74.9 H (16.0-70.0) % Lymph % (Auto) 7.7 L (9.0-44.0) % [place] % (Auto) 17.3 H (0.0-8.0) % Eos % (Auto) 0.0 (0.0-4.0) % Baso % (Auto) 0.1 (0.0-2.0) % Neut # (Auto) 4.1 (1.8-7.7) th/mm3 Lymph # (Auto) 0.4 L (1.0-4.8) th/mm3 [place] # (Auto) 0.9 (0.0-0.9) th/mm3 Eos # (Auto) 0.0 (0.0-0.4) th/mm3 Baso # (Auto) 0.0 (0.0-0.2) th/mm3 WBC Differential Manual diff final Seg Neuts % (Manual) 61 (16-70) % Band Neuts % (Manual) 2 (0-6) % Lymphocytes % (Manual) 23 (9-44) % Monocytes % (Manual) 14 H (0-8) % Eosinophils % (Manual) (0-4) % Abs Neuts (Manual) 3.5 (1.8-7.7) th/mm3 Nucleated RBCs/100 WBC 19 H (0-0) /100 WBC Differential Comment . Platelet Estimate Normal (Normal) Platelet Morphology Enlarged H (Normal) Dimorphic RBCs Present H (None) Polychromasia (0.0-1.9) % Basophilic Stippling Faint H (None) Spherocytes Occ H (None) Pappenheimer Bodies Present H (None) Sickle Cells 3+ H (None) Target Cells 1+ H (None) Monique-Hartline Bodies Present H (None) Retic Count (0.4-3.0) % Absolute Retic (20.0-150.0) mil/L Hematology Comments Sodium 138 (136-145) meq/L Potassium 4.6 D (3.5-5.1) meq/L Chloride 108 H (98-107) meq/L Carbon Dioxide 21.5 (21.0-32.0) meq/L Anion Gap 9 (5-15) meq/L BUN 7 (7-18) mg/dL Creatinine 0.51 L (0.60-1.30) mg/dL Estimated GFR Greater than 89 (>89) mL/min Random Glucose 112 H (74-106) mg/dL Lactic Acid (0.4-2.0) mmol/L Calcium 8.9 D (8.5-10.1) mg/dL Magnesium (1.5-2.5) mg/dL Total Bilirubin 4.7 H (0.2-1.0) mg/dL AST 60 H (15-39) U/L ALT 15 (9-52) U/L Alkaline Phosphatase 89 (45-117) U/L Total Creatine Kinase (39-308) U/L Total Protein 8.2 (6.4-8.2) g/dL Albumin 3.5 (3.4-5.0) g/dL Urine Color (Yellw/Straw) Urine Clarity (Clear) Urine pH (5.0-8.5) Ur Specific [place] (1.002-1.035) Urine Protein (Neg-Trace) mg/dL Urine Glucose (UA) (Negative) mg/dL Urine Ketones (Negative) mg/dL Urine Occult Blood (Negative) Urine Nitrate (Negative) Urine Bilirubin (Negative) Urine Urobilinogen (Less than 2) mg/dL Ur Leukocyte Esterase (Negative) Urine WBC (0-5) /hpf Urine Mucus (Occasional) /lpf Micro UA Comment Ur Microscopic Review Urine Culture Comments Blood Type Antibody Screen Prewarmed Antibody Srcn Antibody Identification Antigen Identification MTS Gel Crossmatch Crossmatch Prewarmed Bld Prod Order Comment Imaging Data Radiologist's impression: Chest X-Ray 05/26/18 03:58 CONCLUSION: No active disease. Discharge Plan Discharge Disposition Patient Disposition: ED Admit(ED Internal Use Only) Discharge Order Discharge Orders: AMA Discharge (Routine); Ordered 05/27/18 Ordered By: Candy Cisse ED Use Only Admit Order (Routine); Ordered 05/26/18 Ordered By: Chase Box Physicians Team ED Provider: Chase Box Attending Provider: Candy Cisse Other Providers: Krystal Aceves Status ED Status: Left Department Discharge Information Discharge Date/Time: 05/26/18 08:14
[2018-05-26 05:22] LABS: Baso # (Auto) 0.2 th/mm3 (0.0-0.2); Eos % (Auto) 6.1 % (0.0-4.0); Lymph # (Auto) 5.5 th/mm3 (1.0-4.8); Lymph % (Auto) 33.6 % (9.0-44.0); Mean Corpuscular Hemoglobin 34.9 pg (27.0-34.0); Mean Corpuscular Volume 95.6 fL (80.0-100.0); Mean Platelet Volume 7.8 fL (7.0-11.0); Mono # (Auto) 2.8 th/mm3 (0.0-0.9); Mono % (Auto) 17.2 % (0.0-8.0); Neut # (Auto) 6.9 th/mm3 (1.8-7.7); Neut % (Auto) 42.1 % (16.0-70.0); Platelet Count 321 th/mm3 (150-450); Red Blood Count 1.68 mil/mm3 (4.50-5.90); Red Cell Distribution Width 26.4 % (11.6-17.2); Reticulocyte Percent 14.4 % (0.4-3.0); White Blood Count 16.4 th/mm3 (4.0-11.0)
[2018-05-26 05:23] LABS: Mean Corpuscular HGB Conc 36.5 % (32.0-36.0)
[2018-05-26 05:25] LABS: Alanine Aminotransferase 14 U/L (9-52); Albumin 3.7 g/dL (3.4-5.0); Anion Gap 8 meq/L (5-15); Aspartate Aminotransferase 78 U/L (15-39); Blood Urea Nitrogen 7 mg/dL (7-18); Calcium 8.1 mg/dL (8.5-10.1); Carbon Dioxide 22.8 meq/L (21.0-32.0); Chloride 108 meq/L (98-107); Glomerular Filtration Rate Greater Than 89 mL/min (>89); Glucose,Random 113 mg/dL (74-106); Hematocrit 16.1 % (39.0-51.0); Hemoglobin 5.9 gm/dL (13.0-17.0); Magnesium 1.8 mg/dL (1.5-2.5); Potassium 3.6 meq/L (3.5-5.1); Sodium 139 meq/L (136-145)
[2018-05-26] MEDS ORDERED: Acetaminophen 325 MG Tablet PO PRN (05:42)
[2018-05-26] MEDS ORDERED: Bisacodyl 10 MG Supp RECTAL PRN (05:42)
[2018-05-26] MEDS ORDERED: Sodium Chlor 0.9% Inj 250 ML IV.SIG SCH (06:00)
[2018-05-26 06:05] LABS: Eosinophils 5 % (0-4); Lymphocytes 47 % (9-44); Monocytes 11 % (0-8); Tallied Nucleated RBC 19 (0-0)
[2018-05-26 06:06] LABS: Howell-Jolly Bodies Present; Pappenheimer Bodies Present; Sickle Cells 3+
[2018-05-26 06:07] LABS: Platelet Estimate Normal (Normal); Polychromasia 6.5 % (0.0-1.9); Target Cells 1+
[2018-05-26] MEDS: Sod Chloride 0.9% Inj 1,000 ML IV.CONT SCH ×2 (07:00→11:53)
[2018-05-26] MEDS: Folic Acid 1 MG Tablet PO SCH (08:40)
[2018-05-26] MEDS: HYDROmorphone PF Inj 2 MG/ML Vial IV.PUSH PRN ×2 (08:40→11:41)
[2018-05-26] MEDS: Senna/Docusate Sodium 8.6/50 MG Tablet PO SCH ×2 (08:40→21:35)
[2018-05-26] MEDS ORDERED: Naloxone Inj 0.4 MG/ML Vial IV.PUSH PRN (12:57)
[2018-05-26] MEDS ORDERED: oxyCODONE/Acetaminophen 10/325 Tablet PO PRN (12:57)
[2018-05-26 13:05] LABS: Bilirubin,Urine Negative (Negative); Clarity,Urine Clear (Clear); Color,Urine Yellow (Yellw/Straw); Glucose,Urine (UA) Negative (Negative); Leukocyte Esterase,Urine Negative (Negative); Mucus,Urine Few /lpf (Occasional); Nitrite,Urine Negative (Negative); Specific Gravity,Urine 1.008 (1.002-1.035)
[2018-05-26 13:07] LABS: Urobilinogen,Urine 0.2 mg/dL (Less than 2)
--- NOTE | 2018-05-26 13:11 | P.HPIM ---
History of Present Illness Primary Care Physician: Reji Cosby Chief Complaint: Shortness of breath, cough History of Present Illness: 17-year-old male with a history of sickle cell, asthma presents to the emergency room with a 3-day history of worsening lower back pain along with shortness of breath with intermittent chills of fever. He reports his shortness of breath is worse along with associated wheezing despite using his inhaler last night and therefore came into emergency room for evaluation. He reports he has had a dry cough for the past 7 days along sinus congestion. He reports he usually does not need chronic pain medication when he is well. When he is in sickle cell crisis he reports IV morphine does help with his pain. He reports that shortness of breath is the same at rest and with physical exertion. He reports no associated abdominal pain or any diarrhea. He denies any dysuria urinary frequency or urgency. Inpatient Certification Inpatient Certification: I certify that the inpatient services were ordered in accordance with Medicare regulations governing the order. This includes certification that hospital inpatient services are reasonable and necessary and in the case of services not specified as inpatient-only under 42 CFR 419.22(n), that they are appropriately provided as inpatient services in accordance to with the 2-midnight benchmark under 43 CFR 412.3(e) Estimated Total Length of Stay (Days): 2 Plans for Post Hospital Care: Not yet determined Review of Systems Constitutional: Reports as per HPI, Reports chills, Reports fever(s), Denies headache(s), Reports malaise and Denies night sweats Eyes: Denies blurry vision, Denies change in vision and Denies eye pain Ears, Nose, Mouth, and Throat: Denies abnormal hearing, Denies headache(s), Denies mouth pain, Denies nasal congestion, Denies neck pain and Denies sore throat Cardiovascular: Denies chest pain, Denies pedal edema, Denies palpitations and Denies dyspnea Respiratory: Denies change in phlegm color, Reports cough, Denies excessive phlegm production, Denies dyspnea and Reports wheezing Gastrointestinal: Denies abdominal pain, Denies constipation, Denies loose stools, Denies nausea and Denies vomiting Musculoskeletal: Reports back pain, Denies myalgias, Reports arthralgias, Denies neck pain and Denies numbness Skin/Breast: Denies new lesions and Denies rash Neurologic: Denies abnormal hearing, Denies headache(s), Denies focal weakness, Denies memory loss and Denies numbness Psychiatric: Denies anxiety, Denies depression and Denies memory loss Endocrine: Denies cold intolerance, Denies heat intolerance and Denies palpitations Hematologic/Lymphatic: Denies easy bleeding and Denies easy bruising [facility] Medical History Medical History Asthma (Chronic) Sickle cell anemia with pain (Chronic) Surgical History Surgical History History of cholecystectomy (Chronic) Hx of appendectomy (Chronic) Family History Family History Mother Diabetes Other Sickle cell disease Social History Social History Substance History: No History of Abuse Second Hand Smoke Exposure: No Smoking Status: Never smoker How Often Do You Have a Drink Containing Alcohol: Never Recent Travel in [facility] within the Last 8 Weeks: No Recent Out of Country Travel within the Last 8 Weeks: No Immunization History Tetanus Immunization: >5 Years Medications and Allergies Allergies Allergy/AdvReac Type Severity Reaction Status Date / Time No Known Allergies Allergy Verified 05/26/18 04:01 Home Medications Medication Instructions Recorded Confirmed Type albuterol sulfate [Ventolin HFA] 2 puff INHALATION Q4-6H PRN 02/07/18 05/26/18 History hydroxyurea (sickle cell) 500 mg PO DAILY 02/07/18 05/26/18 History Active Medications: Active Medications Acetaminophen (Tylenol) 650 mg PO Q4H PRN PRN Reason: Temp > 100.4 Al Hydroxide/Mg Hydroxide (Milk Of Magnesia Liq) 30 ml PO Q12H PRN PRN Reason: Mild Constipation Albuterol (Duoneb Neb (Prn)) 1 ampul NEB Q4HR NEB PRN PRN Reason: SOB/WHEEZING Albuterol (Duoneb Neb (Manuel)) 1 ampul NEB Q6HR WHILE AWAKE NEB MANUEL Azithromycin (Zithromax) 500 mg PO DAILY MANUEL Bisacodyl (Dulcolax Supp) 10 mg RECTAL DAILY PRN PRN Reason: SEVERE CONSITIPATION Folic Acid (Folic Acid) 1 mg PO DAILY MANUEL Last Admin: 05/26/18 08:40 Dose: 1 mg Guaifenesin/Dextromethorphan (Robitussin Dm Liq) 10 ml PO Q4H PRN PRN Reason: COUGH Sodium Chloride (Ns Inj) 250 mls @ 15 mls/hr IV.SIG ONCE [facility] Stop: 05/26/18 22:39 Sodium Chloride (Ns Inj) 1,000 mls @ 100 mls/hr IV.CONT .Q10H [facility] Last Admin: 05/26/18 11:53 Dose: 150 mls/hr Lactulose (Lactulose Liq) 30 ml PO DAILY PRN PRN Reason: SEVERE CONSITIPATION Methylprednisolone Sodium Succinate (Solumedrol Inj) 40 mg IV.PUSH Q8HR MANUEL Morphine Sulfate (Morphine Inj) 4 mg IV.PUSH Q3H PRN PRN Reason: BREAKTHROUGH PAIN Naloxone HCl (Narcan Inj) 0.4 mg IV.PUSH UNSCH PRN PRN Reason: SEE LABEL COMMENTS Non-Formulary Medication (Hydroxyurea (Sickle Cell) [Hydroxyurea (Sickle Cell)] ) 500 mg PO DAILY [facility] Ondansetron HCl (Zofran Inj) 4 mg IV.PUSH Q6H PRN PRN Reason: NAUSEA OR VOMITING Oxycodone/Acetaminophen (Percocet 10/325 Mg) 1 tab PO Q6H PRN PRN Reason: PAIN SCALE 6 TO 10 Oxycodone/Acetaminophen (Percocet 5/325 Mg) 1 tab PO Q6H PRN PRN Reason: PAIN SCALE 3 TO 5 Senna/Docusate Sodium (Jessica-Colace) 1 tab PO BID [facility] Last Admin: 05/26/18 08:40 Dose: Not Given Sennosides (Senokot) 17.2 mg PO Q12H PRN PRN Reason: Moderate Constipation Sodium Chloride (Ns Flush) 2 ml IV.FLUSH BID [facility] Last Admin: 05/26/18 08:40 Dose: 2 ml Sodium Chloride (Ns Flush) 2 ml IV.FLUSH PRN PRN PRN Reason: FLUSH AFTER USING IV ACCESS Physical Exam Vital signs: Vital Signs 05/26/18 03:56 05/26/18 04:01 05/26/18 04:04 Temperature 98.8 F Pulse Rate 102 H 100 H Respiratory Rate 20 20 Blood Pressure 143/66 H Pulse Oximetry 90 L 94 L 94 L 05/26/18 06:34 05/26/18 08:08 05/26/18 11:38 Temperature 98.3 F 98.1 F Pulse Rate 58 L 81 90 Respiratory Rate 18 16 18 Blood Pressure 129/58 L 112/58 L 117/56 L Pulse Oximetry 98 96 Intake & Output 05/25/18 05/26/18 05/26/18 18:59 06:59 18:59 Intake Total 1100 / 1100 1000 / 1000 Balance 1100 / 1100 1000 / 1000 Weight 65.771 kg Intake: IV 1100 / 1100 1000 / 1000 NS Inj 1,000 ML @ 150 mls/hr IV 1000 / 1000 .CONT .Q6H40M [facility] Rx#:[id number] NS Inj 1,000 ML @ 1000 mls/hr 1000 / 1000 IV.SIG BOLUS MANU[facility] Rx#:[id number] Rocephin Inj 1,000 MG In NS Inj 100 / 100 100 ML @ 200 mls/hr IV.SIG ONCE ONE Rx#:[id number] Other: # Voids 1 Narrative: GENERAL: Well-nourished well-developed male in no acute distress SKIN: Warm and dry. HEAD: Atraumatic. Normocephalic. EYES: Pupils equal and round. No scleral icterus. No injection or drainage. ENT: No nasal bleeding or discharge. Mucous membranes pink and moist. NECK: Trachea midline. No JVD. CARDIOVASCULAR: Tachycardic rate, regular rhythm RESPIRATORY: Diffuse expiratory wheeze; mild accessory muscle use. GASTROINTESTINAL: Abdomen soft, non-tender, nondistended. Normoactive bowel sounds MUSCULOSKELETAL: Extremities without clubbing, cyanosis, or edema. No obvious deformities. NEUROLOGICAL: Awake and alert to person place time and situation. No obvious cranial nerve deficits. Motor grossly within normal limits. Five out of 5 muscle strength in the arms and legs. Normal speech. PSYCHIATRIC: Appropriate mood and affect; insight and judgment normal. Results Labs CBC & Chem 7: 05/26/18 04:30 05/26/18 04:30 Imaging Impressions Chest X-Ray 05/26/18 03:58 CONCLUSION: No active disease. Caprini VTE Risk Assessment Caprini VTE Risk Assessment: No/Low Risk (score <= 1) Caprini Risk Assessment Model: Point Value = 1 Point Value = 2 Point Value = 3 Point Value = 5 Age 41-60 Minor surgery BMI > 25 kg/m2 Swollen legs Varicose veins or History of unexplained or recurrent spontaneous Oral contraceptives or hormone replacement Sepsis (< 1 month) Serious lung disease, including pneumonia (< 1 month) Abnormal pulmonary function Acute myocardial infarction Congestive heart failure (< 1 month) History of inflammatory bowel disease Medical patient at bed rest Age 61-74 Arthroscopic surgery Major open surgery (> 45 min) Laparoscopic surgery (> 45 min) Malignancy Confined to bed (> 72 hours) Immobilizing plaster cast Central venous access Age >= 75 History of VTE Family history of VTE Factor V Leiden Prothrombin [id number] Lupus anticoagulant Anticardiolipin antibodies Elevated serum homocysteine Heparin-induced thrombocytopenia Other congenital or acquired thrombophilia Stroke (< 1 month) Elective arthroplasty Hip, pelvis, or leg fracture Acute spinal cord injury (< 1 month) Prophylaxis Regimen: Total Risk Factor Score Risk Level Prophylaxis Regimen 0-1 Low Early ambulation 2 Moderate Order ONE of the following: *Sequential Compression Device (SCD) *Heparin 5000 units SQ BID 3-4 Higher Order ONE of the following medications: *Heparin 5000 units SQ TID *Enoxaparin/Lovenox 40 mg SQ daily (WT < 150 kg, CrCl > 30 mL/min) *Enoxaparin/Lovenox 30 mg SQ daily (WT < 150 kg, CrCl > 10-29 mL/min) *Enoxaparin/Lovenox 30 mg SQ BID (WT < 150 kg, CrCl > 30 mL/min) AND/OR *Sequential Compression Device (SCD) 5 or more Highest Order ONE of the following medications: *Heparin 5000 units SQ TID (Preferred with Epidurals) *Enoxaparin/Lovenox 40 mg SQ daily (WT < 150 kg, CrCl > 30 mL/min) *Enoxaparin/Lovenox 30 mg SQ daily (WT < 150 kg, CrCl > 10-29 mL/min) *Enoxaparin/Lovenox 30 mg SQ BID (WT < 150 kg, CrCl > 30 mL/min) AND *Sequential Compression Device (SCD) Assessment and Plan Plan 17-year-old male with history of sickle cell anemia presented with shortness of breath ,cough, and low back pain Sickle cell pain crisis-start p.o. Percocet with morphine as needed for pain, IV fluid hydration supportive care Acute on chronic anemia, history of sickle cell anemia-patient presented with hemoglobin 5.9, will transfuse 2 units of packed red blood cells, repeat level in the morning. Acute asthma exacerbation with underlying upper respiratory infectionstart steroids, DuoNeb treatment, add Zithromax, dose of IV ceftriaxone given the emergency room.
[2018-05-26] MEDS: MethylPREDNISolone Sod Succinate Inj 40 MG/ML Vial IV.PUSH SCH ×2 (13:50→22:52)
[2018-05-26] MEDS ORDERED: Azithromycin 250 MG Tablet PO SCH (14:00)
--- NOTE | 2018-05-26 14:58 | MB ---
cc: Krystal Aceves MD DATE: 05/26/2018 CHIEF COMPLAINT: 1. Hemoglobin SS disease. 2. Sickle cell pain crisis. HISTORY OF PRESENT ILLNESS: The patient is a 17-year-old gentleman who is admitted to the hospital with lower back pain and rib pain that is consistent with sickle cell pain crisis. He has a known diagnosis of sickle cell disease, and he follows closely with his processing spec in the [facility]. He is on hydroxyurea. He denies any fever or chills. He denies any signs or symptoms of infection. He reports that he is having some mild wheezing. However, this is normal for him as he also has asthma. PAST MEDICAL HISTORY: Sickle cell disease, asthma. PAST SURGICAL HISTORY: Gallbladder. REVIEW OF SYSTEMS: As per HPI. All others negative. FAMILY HISTORY: Other family members with sickle cell disease. SOCIAL HISTORY: Denies tobacco, alcohol, or illegal drug use. 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 HOSPITAL MEDICATIONS: 1. Azithromycin. 2. Rocephin. 3. Folic acid. 4. Hydromorphone 5. Hydroxyurea. 6. Solu-Medrol. 7. Morphine. 8. Oxycodone. 9. Senna. PHYSICAL EXAMINATION: VITAL SIGNS: Temperature 98.1, pulse 82, respiratory rate 18, blood pressure 117/56, pulse oximetry 96% on 2 L via nasal cannula. GENERAL: Thin man, in no distress. HEENT: Head is normocephalic, atraumatic. Eyes with scleral icterus. NECK: Supple. CARDIOVASCULAR: Regular rate and rhythm. No murmurs. RESPIRATORY: Wheezing. EXTREMITIES: No edema. NEUROLOGIC: Grossly nonfocal. PSYCHIATRIC: Appropriate mood and affect. ABDOMEN: Soft, nontender. DIAGNOSTIC DATA: Chest x-ray with no active disease. ASSESSMENT AND PLAN: Sickle cell pain crisis. Continue with current pain medication regimen. The patient reports that his pain is currently well controlled. This pain is consistent with his past history of sickle cell disease. Continue with hydration and venous thromboembolism prophylaxis. He is currently on antibiotics. Inpatient hematology service will continue to follow. Krystal Aceves MD GUANAKO/evan , 02:35 PM , 02:41 PM
[2018-05-26] MEDS: guaiFENesin/Dextromethorphan 200 MG/20 MG 10 ML UDC PO PRN (19:09)
[2018-05-26] MEDS: Morphine Inj 4 MG/ML Vial IV.PUSH PRN ×2 (19:09→22:52)
[2018-05-27] MEDS: Sod Chloride 0.9% Inj 1,000 ML IV.CONT SCH ×2 (00:36→05:05)
[2018-05-27] MEDS: Morphine Inj 4 MG/ML Vial IV.PUSH PRN ×4 (01:45→12:08)
[2018-05-27] MEDS: MethylPREDNISolone Sod Succinate Inj 40 MG/ML Vial IV.PUSH SCH (05:04)
[2018-05-27] MEDS: Folic Acid 1 MG Tablet PO SCH (08:42)
[2018-05-27] MEDS: Senna/Docusate Sodium 8.6/50 MG Tablet PO SCH (08:44)
[2018-05-27] MEDS ORDERED: Hydroxyurea 500 MG Capsule PO SCH (09:00)
[2018-05-27 09:16] VITALS: RESP 20
[2018-05-27 09:45] LABS: Baso % (Auto) 0.1 % (0.0-2.0); Hematocrit 21.3 % (39.0-51.0); Lymph # (Auto) 0.4 th/mm3 (1.0-4.8); Lymph % (Auto) 7.7 % (9.0-44.0); Mean Corpuscular Hemoglobin 34.6 pg (27.0-34.0); Mean Corpuscular Volume 92.1 fL (80.0-100.0); Mono # (Auto) 0.9 th/mm3 (0.0-0.9); Mono % (Auto) 17.3 % (0.0-8.0); Neut # (Auto) 4.1 th/mm3 (1.8-7.7); Neut % (Auto) 74.9 % (16.0-70.0); Red Blood Count 2.32 mil/mm3 (4.50-5.90); Red Cell Distribution Width 21.5 % (11.6-17.2); White Blood Count 5.5 th/mm3 (4.0-11.0)
[2018-05-27 09:46] LABS: Mean Corpuscular HGB Conc 37.6 % (32.0-36.0)
[2018-05-27 09:47] LABS: Mean Platelet Volume 8.1 fL (7.0-11.0); Platelet Count 341 th/mm3 (150-450)
[2018-05-27 09:58] LABS: Alanine Aminotransferase 15 U/L (9-52); Albumin 3.5 g/dL (3.4-5.0); Alkaline Phosphatase 89 U/L (45-117); Anion Gap 9 meq/L (5-15); Aspartate Aminotransferase 60 U/L (15-39); Blood Urea Nitrogen 7 mg/dL (7-18); Calcium 8.9 mg/dL (8.5-10.1); Carbon Dioxide 21.5 meq/L (21.0-32.0); Chloride 108 meq/L (98-107); Glomerular Filtration Rate Greater Than 89 mL/min (>89); Glucose,Random 112 mg/dL (74-106); Potassium 4.6 meq/L (3.5-5.1); Sodium 138 meq/L (136-145); Total Protein 8.2 g/dL (6.4-8.2)
[2018-05-27] MEDS: guaiFENesin/Dextromethorphan 200 MG/20 MG 10 ML UDC PO PRN (10:46)
--- NOTE | 2018-05-27 11:08 | P.PNONC ---
Subjective Interval history: Patient sitting up in bed taking cough medicine and also on the phone. Patient reports wheezing has gotten worse, endorses shortness of breath. Denies any chest pain, reports pain in lower back. Objective Vital Signs/Intake & Output: Vital Signs 05/26/18 11:38 05/26/18 13:57 05/26/18 14:50 Temperature 98.1 F 98.4 F Pulse Rate 90 82 85 Respiratory Rate 18 18 16 Blood Pressure 117/56 L 125/57 L Pulse Oximetry 96 96 94 L 05/26/18 15:10 05/26/18 15:12 05/26/18 18:45 Temperature 96.9 F L 96.9 F L 98.0 F Pulse Rate 74 75 80 Respiratory Rate 16 16 20 Blood Pressure 122/64 122/64 120/64 Pulse Oximetry 96 75 L 05/26/18 19:47 05/26/18 20:05 05/26/18 20:45 Temperature 97.6 F 97.8 F Pulse Rate 67 69 Respiratory Rate 18 18 16 Blood Pressure 128/59 L 123/60 Pulse Oximetry 94 L 95 05/26/18 22:23 05/26/18 23:53 05/27/18 00:00 Temperature 98.2 F 98.7 F Pulse Rate 83 64 79 Respiratory Rate 16 20 16 Blood Pressure 124/72 118/56 L Pulse Oximetry 93 L 94 L 05/27/18 04:00 05/27/18 08:15 Temperature 98.4 F 96.6 F L Pulse Rate 89 62 Respiratory Rate 18 20 Blood Pressure 120/75 114/62 Pulse Oximetry 97 91 L Intake & Output 05/26/18 05/27/18 05/27/18 18:59 06:59 18:59 Intake Total 1400 / 1400 1480 / 1480 Output Total 500 / 500 1200 / 1200 Balance 900 / 900 280 / 280 Weight 65.771 kg 65.771 kg Intake: IV 1000 / 1000 1000 / 1000 NS Inj 1,000 ML @ 100 mls/hr IV 1000 / 1000 1000 / 1000 .CONT .Q10H [facility] Rx#:[id number] Oral 480 / 480 Intake (Blood Product) Amt 400 / 400 0 / 0 Rbc As-3 Leukoreduced Unit 400 / 400 [id number] Rbc As-3 Leukoreduced Unit 0 / 0 [id number] Output: Urine 500 / 500 1200 / 1200 Other: # Voids 1 6 Weight On Admission 65.771 kg Result Diagrams: 05/27/18 07:54 05/27/18 07:54 Laboratory Results: Laboratory Results - last 24 hr 05/26/18 05/26/18 05/26/18 04:30 04:30 10:54 WBC RBC Hgb Hct MCV MCH MCHC RDW Plt Count MPV Prelim Diff (Auto) Neut % (Auto) Lymph % (Auto) Ada % (Auto) Eos % (Auto) Baso % (Auto) Neut # (Auto) Lymph # (Auto) Ada # (Auto) Eos # (Auto) Baso # (Auto) Differential Comment Hematology Comments Sodium Potassium Chloride Carbon Dioxide Anion Gap BUN Creatinine Estimated GFR Random Glucose Calcium Total Bilirubin AST ALT Alkaline Phosphatase Total Protein Albumin Urine Color Urine Clarity Urine pH Ur Specific [place] Urine Protein Urine Glucose (UA) Urine Ketones Urine Occult Blood Urine Nitrate Urine Bilirubin Urine Urobilinogen Ur Leukocyte Esterase Urine WBC Urine Mucus Micro UA Comment Ur Microscopic Review Urine Culture Comments Prewarmed Antibody Srcn Positive H Antibody Identification Non-Specific Cold Agglutinin Antigen Identification C Antigen - NEGATIVE MTS Gel Crossmatch See Detail Crossmatch Prewarmed See Detail Bld Prod Order Comment 05/26/18 05/26/18 05/27/18 12:45 13:04 07:54 WBC 5.5 RBC 2.32 L Hgb Cancelled 8.0 L D Hct Cancelled 21.3 L MCV 92.1 D MCH 34.6 H MCHC 37.6 H RDW 21.5 H D Plt Count 341 MPV 8.1 Prelim Diff (Auto) Slide review pending Neut % (Auto) 74.9 H Lymph % (Auto) 7.7 L Ada % (Auto) 17.3 H Eos % (Auto) 0.0 Baso % (Auto) 0.1 Neut # (Auto) 4.1 Lymph # (Auto) 0.4 L Ada # (Auto) 0.9 Eos # (Auto) 0.0 Baso # (Auto) 0.0 Differential Comment . Hematology Comments Cancelled Sodium Potassium Chloride Carbon Dioxide Anion Gap BUN Creatinine Estimated GFR Random Glucose Calcium Total Bilirubin AST ALT Alkaline Phosphatase Total Protein Albumin Urine Color Yellow Urine Clarity Clear Urine pH 6.0 Ur Specific [place] 1.008 Urine Protein 30 H Urine Glucose (UA) Negative Urine Ketones Negative Urine Occult Blood Moderate H Urine Nitrate Negative Urine Bilirubin Negative Urine Urobilinogen 0.2 Ur Leukocyte Esterase Negative Urine WBC Less than 1 Urine Mucus Few H Micro UA Comment Culture not ind Ur Microscopic Review Not Reportable Urine Culture Comments Culture not ind Prewarmed Antibody Srcn Antibody Identification Antigen Identification MTS Gel Crossmatch Crossmatch Prewarmed Bld Prod Order Comment 05/27/18 07:54 WBC RBC Hgb Hct MCV MCH MCHC RDW Plt Count MPV Prelim Diff (Auto) Neut % (Auto) Lymph % (Auto) Ada % (Auto) Eos % (Auto) Baso % (Auto) Neut # (Auto) Lymph # (Auto) Ada # (Auto) Eos # (Auto) Baso # (Auto) Differential Comment Hematology Comments Sodium 138 Potassium 4.6 D Chloride 108 H Carbon Dioxide 21.5 Anion Gap 9 BUN 7 Creatinine 0.51 L Estimated GFR Greater than 89 Random Glucose 112 H Calcium 8.9 D Total Bilirubin 4.7 H AST 60 H ALT 15 Alkaline Phosphatase 89 Total Protein 8.2 Albumin 3.5 Urine Color Urine Clarity Urine pH Ur Specific [place] Urine Protein Urine Glucose (UA) Urine Ketones Urine Occult Blood Urine Nitrate Urine Bilirubin Urine Urobilinogen Ur Leukocyte Esterase Urine WBC Urine Mucus Micro UA Comment Ur Microscopic Review Urine Culture Comments Prewarmed Antibody Srcn Antibody Identification Antigen Identification MTS Gel Crossmatch Crossmatch Prewarmed Bld Prod Order Comment Culture Results: Microbiology 05/26/18 04:30 Influenza Types A,B Antigen - Final Nasal Wash Negative for FLU A and B antigen Infection due to influenza A or B cannot be ruled out since the antigen present in the sample may be below the detection limit of the test. Medications: Active Medications Generic Name Dose Route Start Last Admin Trade Name Freq PRN Reason Stop Dose Admin Azithromycin 500 mg 05/26/18 14:00 05/26/18 13:50 Zithromax PO 500 mg Q24H NEREYDA Administration Folic Acid 1 mg 05/26/18 09:00 05/27/18 08:42 Folic Acid PO 1 mg DAILY NEREYDA Administration Guaifenesin/Dextromethorphan 10 ml 05/26/18 12:57 05/27/18 10:46 Robitussin Dm Liq PO 10 ml Q4H PRN Administration COUGH Hydroxyurea 500 mg 05/27/18 09:00 05/27/18 08:42 Hydrea PO 500 mg DAILY NEREYDA Administration Sodium Chloride 1,000 mls @ 100 mls/hr 05/26/18 05:45 05/27/18 05:05 Ns Inj IV.CONT 150 mls/hr .Q10H NEREYDA Administration Morphine Sulfate 4 mg 05/26/18 12:57 05/27/18 08:42 Morphine Inj IV.PUSH 4 mg Q3H PRN Administration BREAKTHROUGH PAIN Ondansetron HCl 4 mg 05/26/18 05:42 05/27/18 01:45 Zofran Inj IV.PUSH 4 mg Q6H PRN Administration NAUSEA OR VOMITING Oxycodone/Acetaminophen 1 tab 05/26/18 12:57 05/26/18 13:50 Percocet 10/325 Mg PO 1 tab Q6H PRN Administration PAIN SCALE 6 TO 10 Senna/Docusate Sodium 1 tab 05/26/18 09:00 05/27/18 08:44 Jessica-Colace PO 1 tab BID NEREYDA Administration Sodium Chloride 2 ml 05/26/18 09:00 05/26/18 21:35 Ns Flush IV.FLUSH Not Given BID NEREYDA Objective Remarks: GENERAL: Well-nourished, well-developed, thin, young male patient. SKIN: Warm and dry. HEAD: Normocephalic. EYES: No scleral icterus. No injection or drainage. NECK: Supple, trachea midline. CARDIOVASCULAR: Regular rate and rhythm without murmurs. Tachycardic. RESPIRATORY: Posterior breath sounds wheezing throughout. Tachypneic. O2 sat 91% on room air. GASTROINTESTINAL: Abdomen soft, non-tender, nondistended. EXTREMITIES: No cyanosis, or edema. MUSCULOSKELETAL: Adequate muscle tone. NEUROLOGICAL: No obvious focal deficit. Awake, alert, and oriented x3. PSYCHIATRIC: Appropriate mood and affect; insight and judgment normal. Assessment/Plan - Plan This is a 17-year-old male patient admitted to the hospital with a complaint of lower back pain and rib pain, sickle cell crisis. Patient with history of asthma, presents with wheezing on admission. Plan: 1. Sickle cell pain crisis, hemoglobin 8.0 g/dL today after 2 units PRBCs yesterday for a hemoglobin of 5.9 g/dL. CBC in a.m. Reports pain in lower back today. Pain adequately controlled with current regimen. 2. Asthma, wheezing noted on exam. Requested community education specialist to notify respiratory to give as needed albuterol treatment. CXR on 05/26/2018 was negative for acute process. Noted to be receiving Zithromax p.o. as well as Solu-Medrol IV and Robitussin-DM. 3. Continue supportive measures. - Attending Statement The exam, history, and the medical decision-making described in the above note were completed with the assistance of the mid-level provider. I reviewed and agree with the findings presented. I attest that I had a [id number] encounter with the patient on the same day, and personally performed and documented my assessment and findings in the medical record. SS pain crisis: continue supportive care. Continue pain medication regimen. Pain improved but not yet back to baseline. hemoglobin ss disease: continue hydrea, folic acid asthma exacerbation: abx, steroids, inhaler
--- NOTE | 2018-05-27 11:28 | P.PNIM ---
Subjective Interval history: Patient reports breathing better however wheezing quite a bit. Would like to change duo nebs every 4 hours. Reports still having low back pain not improved. Reports still with dry cough. No shortness of breath. Physical Exam Vital signs: Vital Signs 05/26/18 11:38 05/26/18 13:57 05/26/18 14:50 Temperature 98.1 F 98.4 F Pulse Rate 90 82 85 Respiratory Rate 18 18 16 Blood Pressure 117/56 L 125/57 L Pulse Oximetry 96 96 94 L 05/26/18 15:10 05/26/18 15:12 05/26/18 18:45 Temperature 96.9 F L 96.9 F L 98.0 F Pulse Rate 74 75 80 Respiratory Rate 16 16 20 Blood Pressure 122/64 122/64 120/64 Pulse Oximetry 96 75 L 05/26/18 19:47 05/26/18 20:05 05/26/18 20:45 Temperature 97.6 F 97.8 F Pulse Rate 67 69 Respiratory Rate 18 18 16 Blood Pressure 128/59 L 123/60 Pulse Oximetry 94 L 95 05/26/18 22:23 05/26/18 23:53 05/27/18 00:00 Temperature 98.2 F 98.7 F Pulse Rate 83 64 79 Respiratory Rate 16 20 16 Blood Pressure 124/72 118/56 L Pulse Oximetry 93 L 94 L 05/27/18 04:00 05/27/18 08:15 05/27/18 11:04 Temperature 98.4 F 96.6 F L Pulse Rate 89 62 76 Respiratory Rate 18 20 20 Blood Pressure 120/75 114/62 Pulse Oximetry 97 91 L 05/27/18 11:06 Temperature Pulse Rate Respiratory Rate Blood Pressure Pulse Oximetry 96 Intake & Output 05/26/18 05/27/18 05/27/18 18:59 06:59 18:59 Intake Total 1400 / 1400 1480 / 1480 Output Total 500 / 500 1200 / 1200 Balance 900 / 900 280 / 280 Weight 65.771 kg 65.771 kg Intake: IV 1000 / 1000 1000 / 1000 NS Inj 1,000 ML @ 100 mls/hr IV 1000 / 1000 1000 / 1000 .CONT .Q10H [facility] Rx#:[id number] Oral 480 / 480 Intake (Blood Product) Amt 400 / 400 0 / 0 Rbc As-3 Leukoreduced Unit 400 / 400 [id number] Rbc As-3 Leukoreduced Unit 0 / 0 [id number] Output: Urine 500 / 500 1200 / 1200 Other: # Voids 1 6 Weight On Admission 65.771 kg Narrative: GENERAL: Well-nourished well-developed male in no acute distress CARDIOVASCULAR: Regular rate and rhythm RESPIRATORY: Few diffuse expiratory wheeze; no accessory muscle use. GASTROINTESTINAL: Abdomen soft, non-tender, nondistended. Normoactive bowel sounds MUSCULOSKELETAL: Extremities without clubbing, cyanosis, or edema. No obvious deformities. NEUROLOGICAL: Awake and alert to person place time and situation. Results Labs CBC & Chem 7: 05/27/18 07:54 05/27/18 07:54 Labs: Microbiology 05/26/18 04:15 Blood - Peripheral Aerobic Blood Culture - Preliminary No growth in 1 day 05/26/18 04:15 Blood - Peripheral Anaerobic Blood Culture - Preliminary No growth in 1 day 05/26/18 04:30 Blood - Peripheral Aerobic Blood Culture - Preliminary No growth in 1 day 05/26/18 04:30 Blood - Peripheral Anaerobic Blood Culture - Preliminary No growth in 1 day Assessment and Plan Plan 17-year-old male with history of sickle cell anemia presented with shortness of breath ,cough, and low back pain Sickle cell pain crisis-improved with pain control, continue with p.o. Percocet with morphine as needed for pain, IV fluid hydration for supportive care Acute on chronic anemia, history of sickle cell anemia-patient presented with hemoglobin 5.9, status post 2 units of packed red blood cells, repeat level 8.0 Acute asthma exacerbation with underlying upper respiratory infectioncontinue steroids, DuoNeb treatment, add Zithromax, dose of IV ceftriaxone given the emergency room. Leukocytosis improved overnight. DVT prophylaxisSCDs Progress Note: Quality VTE Deep Vein Thrombosis/Pulmonary Embolism Present on Admission: No
[2018-05-27 11:43] LABS: Lymphocytes 23 % (9-44); Monocytes 14 % (0-8); Tallied Nucleated RBC 19 (0-0)
[2018-05-27 11:44] LABS: Dimorphic RBC Present; Howell-Jolly Bodies Present; Pappenheimer Bodies Present; Sickle Cells 3+; Spherocytes Occ; Target Cells 1+
[2018-05-27 11:45] LABS: Platelet Estimate Normal (Normal)
[2018-05-27] MEDS ORDERED: MethylPREDNISolone Sod Succinate Inj 40 MG/ML Vial IV.PUSH SCH (12:00)
[2018-05-27 14:20] VITALS: BP 117/68; PULSE 81; TEMP 96.9; O2SAT 96
--- NOTE | 2018-05-27 23:35 | ECG ---
Date Performed: 05/26/2018 Time Performed: 04:47:16 PTAGE: 17 years EKG: SINUS TACHYCARDIA MODERATE T-WAVE ABNORMALITY, CONSIDER LATERAL ISCHEMIA ABNORMAL ECG NO PREVIOUS TRACING DOCTOR: Jaime Neves Interpretating Date/Time 05/27/2018 23:35:27
== END 2018-05-27 16:42 | disposition left against medical advice (07) | DRG 812 ==
LOC: NEPD 03:45 → NEDA 06:10 → NEPFCDU 07:43 → H7ONC 17:39
PROVIDERS: ADMIT Family Medicine; ATTEND Family Medicine
CPT/HCPCS: 36430; 71010; 71045; 80053; 81001; 82550; 83605; 83735; 85014; 85018; 85025; 85044; 86077; 86850; 86870; 86900; 86901; 86902; 86920; 86922; 87040; 87205; 87275; 87276; 87804; 90765; 90775; 93005; 94618; 94620; 94640; 94664; 94665; 96365; 96375; 99291; J0696; J1170; J2270; J2405; J2920; J7030; J7050; P9016